=== PATIENT | female | born 1990 | race Caucasian/White ===

== ENCOUNTER 2016-12-04 16:27 | Inpatient (IN) | payer BC ==
[2016-12-04] MEDS ORDERED: Misoprostol 25 MCG (1/4 of 100 MCG) Tab ONE (21:17)
[2016-12-04] MEDS ORDERED: Misoprostol 25 MCG (1/4 of 100 MCG) Tab VAG ONE (21:30)
[2016-12-04] MEDS ORDERED: Sodium Chloride 0.9% 10 ML Syringe FLUSH PRN (21:41)
[2016-12-04] MEDS: Lactated Ringers 1,000 ML IV SCH (22:30)
[2016-12-04] MEDS ORDERED: Ondansetron 4 MG/2 ML SDV IVPUSH PRN (22:47)
[2016-12-04] MEDS ORDERED: fentaNYL 100 MCG/2 ML SDV EPIDUR PRN (22:47)
[2016-12-04] MEDS ORDERED: ePHEDrine 50 MG/ML SDV IVPUSH PRN (22:47)
[2016-12-04] MEDS ORDERED: Bupivacaine/fentaNYL/NS 100 ML Bag EPIDUR SCH (23:00)
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
[2016-12-04] MEDS: Ampicillin 2 GM in Sodium Chloride 0.9% 100 ML IV ONE (23:24)
--- NOTE | 2016-12-04 23:48 | PCM.PREANE ---
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 ), Caries Thyro-Mental Finger Breadths: 3 Mouth Opening Finger Breadths: 3 ROM/Head Extension: Full Lungs: Clear to Auscultation, Normal Respiratory Effort Cardiovascular: Regular Rate, Regular Rhythm, No Murmurs - Lab Values: Laboratory Last Values WBC 12.96 K/mm3 (3.98-10.04) H 12/04/16 22:00 RBC 3.90 M/mm3 (3.98-5.22) L 12/04/16 22:00 Hgb 11.5 gm/L (11.2-15.7) 12/04/16 22:00 Hct 34.3 % (34.1-44.9) 12/04/16 22:00 MCV 87.9 fl (79.4-94.8) 12/04/16 22:00 MCH 29.5 pg (25.6-32.2) 12/04/16 22:00 MCHC 33.5 g/dl (32.2-35.5) 12/04/16 22:00 RDW Std Deviation 40.7 fL (36.4-46.3) 12/04/16 22:00 Plt Count 234 K/mm3 (182-369) 12/04/16 22:00 MPV 9.7 fl (9.4-12.3) 12/04/16 22:00 Neut % (Auto) 72.5 % (34.0-71.1) H 12/04/16 22:00 Lymph % (Auto) 17.7 % (19.3-51.7) L 12/04/16 22:00 Gila % (Auto) 8.6 % (4.7-12.5) 12/04/16 22:00 Eos % (Auto) 0.6 (0.7-5.8) L 12/04/16 22:00 Baso % (Auto) 0.1 % (0.1-1.2) 12/04/16 22:00 Neut # (Auto) 9.40 K/mm3 (1.56-6.13) H 12/04/16 22:00 Lymph # (Auto) 2.29 K/mm3 (1.18-3.74) 12/04/16 22:00 Gila # (Auto) 1.11 K/mm3 (0.24-0.36) H 12/04/16 22:00 Eos # (Auto) 0.08 K/mm3 (0.04-0.36) 12/04/16 22:00 Baso # (Auto) 0.01 K/mm3 (0.01-0.08) 12/04/16 22:00 Free T4 0.85 ng/dL (0.76-1.46) 12/04/16 22:00 TSH 3rd Generation 4.385 uIU/mL (0.358-3.74) H 12/04/16 22:00 Blood Type A POSITIVE 12/04/16 22:00 Gel Antibody Screen Negative 12/04/16 22:00 Above labs reviewed and noted. - Allergies Allergies/Adverse Reactions: Allergies Allergy/AdvReac Type Severity Reaction Status Date / Time No Known Allergies Allergy Verified 10/29/14 19:13 - Anesthesia Plan Pre-Op Medication Ordered: None - Acknowledgements Anesthesia Type Planned: Epidural Pt an Appropriate Candidate for the Planned Anesthesia: Yes Alternatives and Risks of Anesthesia Discussed w Pt/Guardian: Yes Pt/Guardian Understands and Agrees with Anesthesia Plan: Yes PreAnesthesia Questionnaire HEENT History: Reports: Impaired Vision Psychiatric History: Reports: Anxiety, PTSD Endocrine/Metabolic History: Reports: Diabetes, Type I, Other (See Below) Other Endocrine/Metabolic History: HAshimotos - Past Surgical History HEENT Surgical History: Reports: Naso-Sinus Surgery, Oral Surgery, Tonsillectomy GI Surgical History: Reports: Appendectomy, Cholecystectomy - SUBSTANCE USE Smoking Status *Q: Never Smoker Second Hand Smoke Exposure: No Recreational Drug Use History: No - HOME MEDS Home Medications: Home Meds Citalopram [Celexa] 20 mg PO DAILY 04/03/16 [History] Insulin Aspart [Novolog Flexpen] 25 units SUBCUT TID 04/03/16 [History] Insulin Glarg,Human.Rec.Analog [Lantus Solostar] 19 unit SUBCUT ASDIRECTED 04/03 [History] Cetirizine [ZyrTEC] 10 mg PO DAILY 12/04/16 [History] Docusate Sodium [Colace] 300 mg PO BID 12/04/16 [History] [id number]/FA/Omega3/Dha/Fish Oil [ Gummies] 1 each PO 12/04/16 [History] buPROPion [Wellbutrin SR] 150 mg PO DAILY 12/04/16 [History] - CURRENT (IN HOUSE) MEDS Current Meds: Current Medications Bupropion HCl (Wellbutrin Sr) 150 mg PO ONETIME ONE Stop: 12/04/16 21:48 Ephedrine Sulfate (Ephedrine Sulfate) 5 mg IVPUSH ASDIRECTED PRN PRN Reason: Hypotension Fentanyl (Sublimaze) 100 mcg EPIDUR Q3H PRN PRN Reason: Pain Fentanyl/Bupivacaine HCl (Fentanyl/Bupivacaine/Ns 2 Mcg-0.125% 100 Ml) 100 ml EPIDUR ASDIRECTED BIRDIE Insulin Human Regular 100 unit (/ Sodium Chloride) 100 mls @ 0.5 mls/hr IV TITRATE BIRDIE; 0.5 UNIT/HR PRN Reason: Protocol Last Admin: 12/04/16 23:08 Dose: 0.5 unit/hr, 0.5 mls/hr Lactated Ringer's (Ringers, Lactated) 1,000 mls @ 125 mls/hr IV ASDIRECTED BIRDIE Last Admin: 12/04/16 22:30 Dose: 125 mls/hr Oxytocin/Lactated Ringer's (Pitocin In Lr 10 Units/1,000 Ml) 10 unit in 1,000 mls @ 12 mls/hr IV TITRATE BIRDIE; 2 MUNITS/MIN PRN Reason: Protocol Ampicillin Sodium 1 gm/ Sodium (Chloride) 100 mls @ 200 mls/hr IV Q4H [facility] Misoprostol (Cytotec) 25 mcg VAG Q3H BIRDIE Stop: 12/05/16 03:31 Ondansetron HCl (Zofran) 4 mg IVPUSH ONETIME PRN PRN Reason: Nausea/Vomiting Sodium Chloride (Saline Flush) 10 ml FLUSH ASDIRECTED PRN PRN Reason: Keep Vein Open Discontinued Medications Ampicillin Sodium 2 gm/ Sodium (Chloride) 100 mls @ 200 mls/hr IV ONETIME ONE Stop: 12/04/16 23:14 Last Admin: 12/04/16 23:24 Dose: 200 mls/hr Misoprostol (Cytotec) Confirm Administered Dose 25 mcg .ROUTE .STK-MED ONE Stop: 12/04/16 21:18 Last Admin: 12/04/16 23:03 Dose: 25 mcg Misoprostol (Cytotec) 25 mcg VAG ONETIME ONE Stop: 12/04/16 21:31
[2016-12-04] MEDS ORDERED: Nalbuphine 20 MG/1 ML Amp IVPUSH PRN (23:55)
[2016-12-05] MEDS ORDERED: Oxytocin 10 Units/1 ML SDV IV ONE ×2 (00:30→08:00)
[2016-12-05] MEDS: Misoprostol 25 MCG (1/4 of 100 MCG) Tab VAG SCH ×2 (00:35→03:38)
[2016-12-05] MEDS: Ampicillin 1 GM in Sodium Chloride 0.9% 100 ML IV SCH ×6 (03:10→23:00)
[2016-12-05] MEDS ORDERED: Oxytocin/Lactated Ringers 10 UNIT/1,000 ML BAG IV SCH ×2 (06:30)
[2016-12-05] MEDS: Lactated Ringers 1,000 ML IV SCH (07:03)
--- NOTE | 2016-12-05 07:31 | PCM.SN ---
- Free Text/Narrative Note: Cervix 1-2 cm, 50%, soft, posterior vertex-2. Had cytotec 25 mcg x3 now on Pitocin.
[2016-12-05] MEDS ORDERED: Oxytocin/Lactated Ringers 10 UNIT/1,000 ML BAG IV ONE (08:00)
[2016-12-05] MEDS ORDERED: Insulin Detemir 100 Units/ML 3 ML Pen SUBCUT SCH (09:00)
[2016-12-05] MEDS ORDERED: buPROPion 150 MG Tab.SR PO SCH ×2 (09:00→21:00)
[2016-12-05] MEDS: Ampicillin 2 GM in Sodium Chloride 0.9% 100 ML IV ONE (09:57)
--- NOTE | 2016-12-05 10:39 | PCM.SN ---
- Free Text/Narrative Note: Cervix 1-2, 60%, soft, posterior, vertex -1, Cat I FHR with a few variable decelerations.
[2016-12-05] MEDS: INSULIN ASPART 100 UNIT/ML SUBCUT SCH ×3 (12:03→21:11)
--- NOTE | 2016-12-05 13:28 | PCM.SN ---
- Free Text/Narrative Note: Cervix 1-2,70, soft, posterior, vertex-2. Cat I FHR Insulin sliding scale working well with hourly glucoses. Ate lunch and took Novolog 9 units. Will recheck at 1700.
[2016-12-05] MEDS ORDERED: Lactated Ringers 1,000 ML IV SCH (14:00)
[2016-12-05] MEDS ORDERED: Gentamicin Pediatric 10 MG/ML 2 ML SDV ONE (16:06)
[2016-12-05] MEDS ORDERED: Insuln Aspart Prot/Insulin Aspart 100 Units/ML 3 ML FlexPen SUBCUT ONE (20:30)
[2016-12-05] MEDS ORDERED: [UNRECOGNIZED DRUG - OTHER] SUBCUT SCH (20:30)
--- NOTE | 2016-12-05 23:51 | PCM.SN ---
- Free Text/Narrative Note: Amniotomy performed clear fluid at 2343 hours. Cervix 1-2, 80%, soft, posterior , vertex 0 station. IUPC placed. Attempted to place FHR electrode x2 but not able to place at this time.
[2016-12-06] MEDS: Dextrose 5% in Water 1,000 ML IV SCH ×4 (01:02→22:08)
[2016-12-06] MEDS: Ampicillin 1 GM in Sodium Chloride 0.9% 100 ML IV SCH ×4 (03:03→15:10)
--- NOTE | 2016-12-06 04:20 | PCM.DEL ---
L & D Note - General Info Date of Service: 12/06/16 Mother's Due Date: 12/11/16 - Delivery Note Labor: Augmented by ARM, Augmented by Oxytocin Cervical Ripening Method: Misoprostil Delivery Outcome: Livebirth Infant Delivery Method: Emergent (Low segment transverse see operative report.) Infant Delivery Mode: Vacuum Extraction (Active extraction at time of was required 2 applications in the green for less than 30 seconds each.) Presentation: Right Occiput Posterior (ROP) (Rotated to IAN and delivered with vacuum at the time of .) Nuchal Cord: Present (Times one tight) Anesthesia Type: Epidural Episiotomy Type: None Laceration: None Placenta: Intact, Manual Removal Cord: 3 Vessels (At time of . See operative report) Estimated Blood Loss: 750 Resuscitation Needed: No : Suctioned, Bulb Syringe, Stimulated, Warmed, Hensel Used, Warmer Used Provider: Yared New Score 1 min: 7 Score 5 min: 9 Delivery Comments (Free Text/Narrative):: Operative report dictated see operative report for delivery information it was a emergent section not a vaginal delivery. - Patient Data Vitals - Most Recent: Last Vital Signs Temp 98.8 F 12/04/16 23:59 Pulse 117 H 12/04/16 23:59 Resp 18 12/04/16 23:59 BP 137/81 12/04/16 23:59 Pulse Ox 98 12/04/16 23:59 Weight - Most Recent: 229 lb I&O - Last 24 Hours: Intake & Output 12/05/16 12/05/16 12/06/16 14:59 22:59 06:59 Intake Total 200 820 765 Output Total 425 1025 Balance 200 395 -260 Lab Results Last 24 Hours: Laboratory Results - last 24 hr 12/06/16 Range/Units 04:08 POC Glucose 89 (70-105) mg/dL Med Orders - Current: Current Medications Ephedrine Sulfate (Ephedrine Sulfate) 5 mg IVPUSH ASDIRECTED PRN PRN Reason: Hypotension Fentanyl (Sublimaze) 100 mcg EPIDUR Q3H PRN PRN Reason: Pain Fentanyl/Bupivacaine HCl (Fentanyl/Bupivacaine/Ns 2 Mcg-0.125% 100 Ml) 100 ml EPIDUR ASDIRECTED BIRDIE Insulin Human Regular 100 unit (/ Sodium Chloride) 100 mls @ 0.5 mls/hr IV TITRATE BIRDIE; 0.5 UNIT/HR PRN Reason: Protocol Last Titration: 12/06/16 01:59 Dose: 0.5 unit/hr, 0.5 mls/hr Lactated Ringer's (Ringers, Lactated) 1,000 mls @ 125 mls/hr IV ASDIRECTED [facility] Last Infusion: 12/06/16 01:00 Dose: Infused Ampicillin Sodium 1 gm/ Sodium (Chloride) 100 mls @ 200 mls/hr IV Q4H [facility] Last Admin: 12/06/16 03:03 Dose: 100 mls/hr Oxytocin 20 unit/ Lactated (Ringer's) 1,002 mls @ 60.12 mls/hr IV TITRATE BIRDIE; 20 MUNITS/MIN PRN Reason: Protocol Last Titration: 12/06/16 03:51 Dose: 25 munits/min, 75.15 mls/hr Dextrose/Water (Dextrose 5% In Water) 1,000 mls @ 100 mls/hr IV ASDIRECTED [facility] Last Admin: 12/06/16 01:02 Dose: 100 mls/hr Insulin Aspart (Novolog) 0 unit SUBCUT QIDACANDBED [facility] Last Admin: 12/05/16 21:11 Dose: Not Given Nalbuphine HCl (Nubain) 10 mg IVPUSH Q2H PRN PRN Reason: Pain (moderate 4-6) Ondansetron HCl (Zofran) 4 mg IVPUSH ONETIME PRN PRN Reason: Nausea/Vomiting Lantus Insulin U-100 (Own Med) 0 each SUBCUT DAILY@2030 [facility] Last Admin: 12/05/16 21:08 Dose: 30 each Bupropion 150 Mg Tab (.Sr) 0 each PO BEDTIME [facility] Last Admin: 12/05/16 21:04 Dose: 150 each Sodium Chloride (Saline Flush) 10 ml FLUSH ASDIRECTED PRN PRN Reason: Keep Vein Open Discontinued Medications Gentamicin Sulfate (Gentamicin) Confirm Administered Dose 20 mg .ROUTE .STK-MED ONE Stop: 12/05/16 16:07 Last Admin: 12/05/16 16:17 Dose: Not Given Oxytocin/Lactated Ringer's (Pitocin In Lr 10 Units/1,000 Ml) 10 unit in 1,000 mls @ 12 mls/hr IV TITRATE BIRDIE; 2 MUNITS/MIN PRN Reason: Protocol Ampicillin Sodium 2 gm/ Sodium (Chloride) 100 mls @ 200 mls/hr IV ONETIME ONE Stop: 12/04/16 23:14 Last Admin: 12/05/16 09:57 Dose: Not Given Oxytocin/Lactated Ringer's (Pitocin In Lr 10 Units/1,000 Ml) 10 unit in 1,000 mls @ 500 mls/hr IV ONETIME ONE Stop: 12/05/16 09:59 Oxytocin/Lactated Ringer's (Pitocin In Lr 10 Units/1,000 Ml) 10 unit in 1,000 mls @ 12 mls/hr IV TITRATE BIRDIE; 2 MUNITS/MIN PRN Reason: Protocol Last Titration: 12/05/16 18:49 Dose: 0 munits/min, 0 mls/hr Lactated Ringer's (Ringers, Lactated) 1,000 mls @ 125 mls/hr IV ASDIRECTED [facility] Last Infusion: 12/05/16 18:57 Dose: 30 mls/hr Insulin Aspart (Novolog Mix 70-30) 30 unit SUBCUT BIDMEALS ONE Stop: 12/05/16 20:31 Insulin Detemir (Levemir) 15 unit SUBCUT BID [facility] Misoprostol (Cytotec) Confirm Administered Dose 25 mcg .ROUTE .STK-MED ONE Stop: 12/04/16 21:18 Last Admin: 12/04/16 23:03 Dose: 25 mcg Misoprostol (Cytotec) 25 mcg VAG ONETIME ONE Stop: 12/04/16 21:31 Last Admin: 12/05/16 07:57 Dose: Not Given Misoprostol (Cytotec) 25 mcg VAG Q3H [facility]IRDIE Stop: 12/05/16 03:31 Last Admin: 12/05/16 03:38 Dose: 25 mcg Oxytocin (Pitocin) 10 unit IV ONETIME ONE Stop: 12/05/16 00:31 Oxytocin (Pitocin) 10 unit IV ONETIME ONE Stop: 12/05/16 08:01 Bupropion 150 Mg Tab (.Sr) 0 each PO DAILY [facility] Last Admin: 12/05/16 15:18 Dose: Not Given - Problem List & Annotations (1) 39 weeks gestation of SNOMED Code(s): 54603209 Code(s): Z3A.39 - 39 WEEKS GESTATION OF Status: Acute Current Visit: Yes (2) complicated by pre-existing type 1 diabetes in third trimester SNOMED Code(s): 341220253, 61118742, 652738503 Code(s): O24.013 - PRE-EXISTING TYPE 1 DIABETES, IN , THIRD TRIMESTER Status: Acute Current Visit: Yes (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 SNOMED Code(s): 0458797761019 Code(s): Z22.330 - CARRIER OF GROUP B STREPTOCOCCUS Status: Acute Current Visit: Yes (4) Angel's thyroiditis SNOMED Code(s): 37914428 Code(s): E06.3 - AUTOIMMUNE THYROIDITIS Status: Acute Current Visit: Yes - Problem List Review Problem List Initiated/Reviewed/Updated: No - My Orders Last 24 Hours: My Active Orders 12/05/16 11:30 Insulin Aspart [NovoLOG] 0 unit SUBCUT QIDACANDBED 12/05/16 14:01 Communication Order [RC] ASDIRECTED 12/05/16 17:25 Communication Order [RC] ASDIRECTED 12/05/16 17:30 Oxytocin [Pitocin] 20 unit Lactated Ringers [Ringers, Lactated] 1,000 ml IV TITRATE 12/05/16 20:30 Patient's Own Medication [Ptom] 0 each SUBCUT DAILY@202912/05/16 21:00 Patient's Own Medication [Ptom] 0 each PO BEDTIME 12/06/16 00:45 Dextrose 5% in Water 1,000 ml IV ASDIRECTED - Plan Plan:: Assessment: 1- 39 weeks 0/7 days intrauterine . 2- Cervix: 1 cm, 30% effaced, posterior, soft and vertex -3. 3- Type I diabetes mellitus. 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 6- Thoracic outlet syndrome. Plan: 1- Delivery. 2- Continue Lantus. 3- Continue Wellbutrin. 4- IV insulin drip to assist in controlling glucose. 5- Ampicillin for GBS. 6- CBC. Type and screen. 7- TSH and free T4. 8- Rupture membranes, if able, in the am to evaluate amniotic fluids. 9- Lactated ringers IV 125 mL/hour. 10- Cytotec administration.
--- NOTE | 2016-12-06 04:48 | PCM.SN ---
- Free Text/Narrative Note: 1-2, 90%, soft, posterior, vertex-1 Cat I.
[2016-12-06] MEDS ORDERED: Bupivacaine 0.25% 10 ML SDV ONE (05:00)
[2016-12-06] MEDS: INSULIN ASPART 100 UNIT/ML SUBCUT SCH ×3 (08:17→17:28)
[2016-12-06] MEDS ORDERED: Oxytocin 10 Units/1 ML SDV ONE ×3 (09:07→17:11)
[2016-12-06] MEDS ORDERED: Oxytocin/Lactated Ringers 10 UNIT/1,000 ML BAG IV ONE (09:08)
--- NOTE | 2016-12-06 10:20 | PCM.SN ---
- Free Text/Narrative Note: Cervix 3-4 cm, 100%, soft, midposition, vertex 0 station Cat I FHR.
--- NOTE | 2016-12-06 11:13 | PCM.SN ---
- Free Text/Narrative Note: cervix 3-4 cm dilated 100% effaced soft mid position head vertex at 0 to +1 station, category 1 heart tones.
[2016-12-06] MEDS: Lactated Ringers 1,000 ML IV SCH (13:21)
[2016-12-06] MEDS ORDERED: Citric Acid/Sodium Citrate Solution 30 ML Cup PO ONE (15:36)
[2016-12-06] MEDS ORDERED: Metoclopramide 10 MG/2 ML SDV IVPUSH ONE (15:36)
[2016-12-06] MEDS ORDERED: ceFAZolin 2 GM in Premix Bag 1 BAG IV ONE (15:36)
[2016-12-06] MEDS ORDERED: Sodium Chloride 0.9% 10 ML Syringe FLUSH PRN (15:36)
[2016-12-06] MEDS ORDERED: Bupivacaine 0.5% 30 ML SDV ONE (15:37)
--- NOTE | 2016-12-06 15:44 | PCM.SN ---
- Free Text/Narrative Note: Patient had several decelerations, turned off Pitocin examined patient and cervix minimal if any change still 4-5 at most. Due to decelerations, inadequate progress, will proceed with section.
[2016-12-06] MEDS ORDERED: Lactated Ringers 1,000 ML IV SCH (15:45)
[2016-12-06] MEDS ORDERED: Morphine PF 10 MG/10 ML SDV ONE (16:00)
[2016-12-06] MEDS ORDERED: ceFAZolin 1 GM Vial ONE (16:00)
[2016-12-06] MEDS ORDERED: Lidocaine 2% with EPINEPHrine 1:200,000 20 ML SDV ONE (16:03)
[2016-12-06] MEDS ORDERED: Ketorolac 30 MG/ML SDV ONE (16:46)
[2016-12-06] MEDS ORDERED: Lactated Ringers 1,000 ML ONE ×2 (17:10)
[2016-12-06] MEDS ORDERED: fentaNYL 250 MCG/5 ML SDV IVPUSH PRN (17:13)
[2016-12-06] MEDS ORDERED: diphenhydrAMINE 50 MG/ML SDV IVPUSH PRN (17:13)
--- NOTE | 2016-12-06 17:15 | PCM.POSTAN ---
POST ANESTHESIA ASSESSMENT - MENTAL STATUS Mental Status: Alert, Oriented - VITAL SIGNS Pulse Rate: 98 SaO2: 100 Resp Rate: 20 Blood Pressure: 99/63 Temperature: 37.2 C - RESPIRATORY Respiratory Status: Respiratory Rate WNL, Airway Patent, O2 Saturation Stable, Supplemental Oxygen - CARDIOVASCULAR CV Status: Pulse Rate WNL, Blood Pressure Stable - GASTROINTESTINAL GI Status: No Symptoms - PAIN Pain Score: 0 - POST OP HYDRATION Hydration Status: Adequate & Stable - OBSERVATIONS Free Text/Narrative:: no anesthesia complications noted
--- NOTE | 2016-12-06 17:20 | PCM.OPNOTE ---
- General Post-Op/Procedure Note Date of Surgery/Procedure: 12/06/16 Operative Procedure(s): Low segment transverse primary with left inferior extension approximately 2.5-3 cm towards the cervix. (Suggested patient may want to consider repeat section) Pre Op Diagnosis: 39 weeks gestation, failure to progress, nonreassuring heart rate pattern Post-Op Diagnosis: Same plus nuchal cord 1 tight and occiput posterior presentation Anesthesia Technique: Epidural Primary Surgeon: Yared New Secondary Surgeon: Suman Martin Anesthesia Provider: Fahad Michaud Assistant To The Dean: Paco Lombardo ([id number]) Assistant To The Dean: Jinny James Fluid Replacement, Intraop: 2,000 Output, Urine Amount: 325 EBL in mLs: 750 Drain/Tube Comments:: Hanna catheter to gravity drainage close system Complications: None Condition: Good Free Text/Narrative:: Intake & Output 12/06/16 12/06/16 12/06/16 06:59 14:59 22:59 Intake Total 765 3200 500 Output Total 1825 500 Balance -1060 2700 500 Patient was transported to the operating room and placed under epidural anesthesia in the supine position and prepared and draped in a sterile fashion vaginal and abdominal prep. Hanna catheter had been placed to gravity drainage. SCDs in place and functioning prior surgery. Patient received 2 g of Ancef intravenously prior to surgery. Timeout performed confirming name date of and procedure as section. Adequate level of anesthesia was confirmed. The was brought to the operating room. Injecting 20 mL of 0.5% Marcaine without epinephrine in the planned incision area of the incision made and carried sharp section to into the anterior fascia. The anterior fascia was entered transversely and peritoneal cavity then entered bladder flap created pushed caudad low segment transverse section was performed the was persistent occiput posterior the head was elevated and carefully rotated nuchal cord 1 tight was reduced and vacuum was applied 2 in the green 2. The was delivered male liveborn 1627 hrs Thursday12/06/2016. Dr. Reardon crabbing machine operator in attendance and cared for the . Cord blood collected from normal three-vessel cord placenta removed manually endometrial cavity inspected and remnants of membranes removed sponge needle pack asthma sharp count correct times one the uterine incision closed in 2 layers with 0 Monocryl running locking suture for the first layer and a second layer running locking suture including 2 layers with the inferior left side extension towards the cervix. The incision appeared normal no bleeding both tubes and ovaries were normal clot screen from the gutters and cul-de-sac uterus replaced into the abdominal cavity reinspection of the uterine incision showed no bleeding. Sponge needle pack asthma sharp count correct 2 and the abdominal cavity was closed with #1 PDS for the anterior fascia 3 interrupted sutures of 0 Monocryl placed to close the subcutaneous tissue. The skin was closed subcuticular 3-0 Monocryl. Dermabond Preneo applied. Patient was transported postanesthesia care unit in satisfactory condition no blood transfusions required not anticipated. Patient received Toradol 30 mg IV postop. Clots were cleaned from the vagina at the end of the procedure.
[2016-12-06] MEDS ORDERED: [UNRECOGNIZED DRUG - OTHER] SUBCUT SCH (20:30)
[2016-12-06] MEDS ORDERED: DOCUSATE SODIUM PO SCH (21:00)
[2016-12-06] MEDS: buPROPion 150 MG Tab.SR PO SCH (21:11)
[2016-12-06] MEDS: Ketorolac 30 MG/ML SDV IVPUSH SCH (23:09)
[2016-12-07] MEDS: Ketorolac 30 MG/ML SDV IVPUSH SCH ×2 (05:08→11:29)
[2016-12-07] MEDS: INSULIN ASPART 100 UNIT/ML SUBCUT SCH ×3 (08:04→17:17)
[2016-12-07] MEDS ORDERED: BUPROPION 150 MG PO SCH (09:00)
--- NOTE | 2016-12-07 10:19 | PCM.PNPP ---
- General Info Date of Service: 12/07/16 Admission Dx/Problem (Free Text): Patient Status Order with Admit Dx/Problem 12/04/16 23:57 Patient Status [ADT] Routine Admission Diagnosis/Problem Admission Diagnosis/Problem Functional Status: Reports: Pain Controlled - Review of Systems General: Reports: No Symptoms HEENT: Reports: No Symptoms Pulmonary: Reports: No Symptoms Cardiovascular: Reports: No Symptoms Gastrointestinal: Reports: No Symptoms Genitourinary: Reports: No Symptoms Musculoskeletal: Reports: No Symptoms Skin: Reports: No Symptoms Neurological: Reports: No Symptoms Psychiatric: Reports: No Symptoms - General Info Date of Service: 12/07/16 - Patient Data Vital Signs - Most Recent: Last Vital Signs Temp 97.9 F 12/07/16 09:03 Pulse 95 12/07/16 09:03 Resp 14 12/07/16 09:03 BP 108/61 12/07/16 09:03 Pulse Ox 100 12/07/16 09:03 Weight - Most Recent: 229 lb I&O - Last 24 Hours: Intake & Output 12/06/16 12/07/16 12/07/16 22:59 06:59 14:59 Intake Total 2900 1700 Output Total 875 1450 750 Balance 2025 250 -750 Lab Results - Last 24 Hours: Laboratory Results - last 24 hr 12/06/16 12/06/16 12/06/16 Range/Units 11:07 12:09 13:05 WBC (3.98-10.04) K/mm3 RBC (3.98-5.22) M/mm3 Hgb (11.2-15.7) gm/L Hct (34.1-44.9) % MCV (79.4-94.8) fl MCH (25.6-32.2) pg MCHC (32.2-35.5) g/dl RDW Std Deviation (36.4-46.3) fL Plt Count (182-369) K/mm3 MPV (9.4-12.3) fl Neut % (Auto) (34.0-71.1) % Lymph % (Auto) (19.3-51.7) % Reagan % (Auto) (4.7-12.5) % Eos % (Auto) (0.7-5.8) Baso % (Auto) (0.1-1.2) % Neut # (Auto) (1.56-6.13) K/mm3 Lymph # (Auto) (1.18-3.74) K/mm3 Reagan # (Auto) (0.24-0.36) K/mm3 Eos # (Auto) (0.04-0.36) K/mm3 Baso # (Auto) (0.01-0.08) K/mm3 POC Glucose 106 H 125 H 103 (70-105) mg/dL 12/06/16 12/06/16 12/06/16 Range/Units 14:04 14:58 16:00 WBC (3.98-10.04) K/mm3 RBC (3.98-5.22) M/mm3 Hgb (11.2-15.7) gm/L Hct (34.1-44.9) % MCV (79.4-94.8) fl MCH (25.6-32.2) pg MCHC (32.2-35.5) g/dl RDW Std Deviation (36.4-46.3) fL Plt Count (182-369) K/mm3 MPV (9.4-12.3) fl Neut % (Auto) (34.0-71.1) % Lymph % (Auto) (19.3-51.7) % Reagan % (Auto) (4.7-12.5) % Eos % (Auto) (0.7-5.8) Baso % (Auto) (0.1-1.2) % Neut # (Auto) (1.56-6.13) K/mm3 Lymph # (Auto) (1.18-3.74) K/mm3 Reagan # (Auto) (0.24-0.36) K/mm3 Eos # (Auto) (0.04-0.36) K/mm3 Baso # (Auto) (0.01-0.08) K/mm3 POC Glucose 116 H 112 H 107 H (70-105) mg/dL 12/06/16 12/06/16 12/06/16 Range/Units 17:12 18:59 20:02 WBC (3.98-10.04) K/mm3 RBC (3.98-5.22) M/mm3 Hgb (11.2-15.7) gm/L Hct (34.1-44.9) % MCV (79.4-94.8) fl MCH (25.6-32.2) pg MCHC (32.2-35.5) g/dl RDW Std Deviation (36.4-46.3) fL Plt Count (182-369) K/mm3 MPV (9.4-12.3) fl Neut % (Auto) (34.0-71.1) % Lymph % (Auto) (19.3-51.7) % Reagan % (Auto) (4.7-12.5) % Eos % (Auto) (0.7-5.8) Baso % (Auto) (0.1-1.2) % Neut # (Auto) (1.56-6.13) K/mm3 Lymph # (Auto) (1.18-3.74) K/mm3 Reagan # (Auto) (0.24-0.36) K/mm3 Eos # (Auto) (0.04-0.36) K/mm3 Baso # (Auto) (0.01-0.08) K/mm3 POC Glucose 115 H 166 H 156 H (70-105) mg/dL 12/06/16 12/06/16 12/06/16 Range/Units 21:14 22:04 23:02 WBC (3.98-10.04) K/mm3 RBC (3.98-5.22) M/mm3 Hgb (11.2-15.7) gm/L Hct (34.1-44.9) % MCV (79.4-94.8) fl MCH (25.6-32.2) pg MCHC (32.2-35.5) g/dl RDW Std Deviation (36.4-46.3) fL Plt Count (182-369) K/mm3 MPV (9.4-12.3) fl Neut % (Auto) (34.0-71.1) % Lymph % (Auto) (19.3-51.7) % Reagan % (Auto) (4.7-12.5) % Eos % (Auto) (0.7-5.8) Baso % (Auto) (0.1-1.2) % Neut # (Auto) (1.56-6.13) K/mm3 Lymph # (Auto) (1.18-3.74) K/mm3 Reagan # (Auto) (0.24-0.36) K/mm3 Eos # (Auto) (0.04-0.36) K/mm3 Baso # (Auto) (0.01-0.08) K/mm3 POC Glucose 175 H 154 H 138 H (70-105) mg/dL 12/07/16 12/07/16 12/07/16 Range/Units 00:17 00:59 01:56 WBC (3.98-10.04) K/mm3 RBC (3.98-5.22) M/mm3 Hgb (11.2-15.7) gm/L Hct (34.1-44.9) % MCV (79.4-94.8) fl MCH (25.6-32.2) pg MCHC (32.2-35.5) g/dl RDW Std Deviation (36.4-46.3) fL Plt Count (182-369) K/mm3 MPV (9.4-12.3) fl Neut % (Auto) (34.0-71.1) % Lymph % (Auto) (19.3-51.7) % Reagan % (Auto) (4.7-12.5) % Eos % (Auto) (0.7-5.8) Baso % (Auto) (0.1-1.2) % Neut # (Auto) (1.56-6.13) K/mm3 Lymph # (Auto) (1.18-3.74) K/mm3 Reagan # (Auto) (0.24-0.36) K/mm3 Eos # (Auto) (0.04-0.36) K/mm3 Baso # (Auto) (0.01-0.08) K/mm3 POC Glucose 119 H 113 H 105 (70-105) mg/dL 12/07/16 12/07/16 12/07/16 Range/Units 02:59 04:06 05:03 WBC (3.98-10.04) K/mm3 RBC (3.98-5.22) M/mm3 Hgb (11.2-15.7) gm/L Hct (34.1-44.9) % MCV (79.4-94.8) fl MCH (25.6-32.2) pg MCHC (32.2-35.5) g/dl RDW Std Deviation (36.4-46.3) fL Plt Count (182-369) K/mm3 MPV (9.4-12.3) fl Neut % (Auto) (34.0-71.1) % Lymph % (Auto) (19.3-51.7) % Reagan % (Auto) (4.7-12.5) % Eos % (Auto) (0.7-5.8) Baso % (Auto) (0.1-1.2) % Neut # (Auto) (1.56-6.13) K/mm3 Lymph # (Auto) (1.18-3.74) K/mm3 Reagan # (Auto) (0.24-0.36) K/mm3 Eos # (Auto) (0.04-0.36) K/mm3 Baso # (Auto) (0.01-0.08) K/mm3 POC Glucose 86 92 83 (70-105) mg/dL 12/07/16 12/07/16 12/07/16 Range/Units 06:08 07:05 07:57 WBC (3.98-10.04) K/mm3 RBC (3.98-5.22) M/mm3 Hgb (11.2-15.7) gm/L Hct (34.1-44.9) % MCV (79.4-94.8) fl MCH (25.6-32.2) pg MCHC (32.2-35.5) g/dl RDW Std Deviation (36.4-46.3) fL Plt Count (182-369) K/mm3 MPV (9.4-12.3) fl Neut % (Auto) (34.0-71.1) % Lymph % (Auto) (19.3-51.7) % Reagan % (Auto) (4.7-12.5) % Eos % (Auto) (0.7-5.8) Baso % (Auto) (0.1-1.2) % Neut # (Auto) (1.56-6.13) K/mm3 Lymph # (Auto) (1.18-3.74) K/mm3 Reagan # (Auto) (0.24-0.36) K/mm3 Eos # (Auto) (0.04-0.36) K/mm3 Baso # (Auto) (0.01-0.08) K/mm3 POC Glucose 74 76 128 H (70-105) mg/dL 12/07/16 12/07/16 Range/Units 09:17 10:00 WBC 10.55 H (3.98-10.04) K/mm3 RBC 3.06 L (3.98-5.22) M/mm3 Hgb 9.0 L (11.2-15.7) gm/L Hct 27.2 L (34.1-44.9) % MCV 88.9 (79.4-94.8) fl MCH 29.4 (25.6-32.2) pg MCHC 33.1 (32.2-35.5) g/dl RDW Std Deviation 40.6 (36.4-46.3) fL Plt Count 203 (182-369) K/mm3 MPV 9.0 L (9.4-12.3) fl Neut % (Auto) 75.4 H (34.0-71.1) % Lymph % (Auto) 15.3 L (19.3-51.7) % Reagan % (Auto) 8.3 (4.7-12.5) % Eos % (Auto) 0.5 L (0.7-5.8) Baso % (Auto) 0.1 (0.1-1.2) % Neut # (Auto) 7.96 H (1.56-6.13) K/mm3 Lymph # (Auto) 1.61 (1.18-3.74) K/mm3 Reagan # (Auto) 0.88 H (0.24-0.36) K/mm3 Eos # (Auto) 0.05 (0.04-0.36) K/mm3 Baso # (Auto) 0.01 (0.01-0.08) K/mm3 POC Glucose 127 H (70-105) mg/dL Med Orders - Current: Current Medications Docusate Sodium (Colace) 100 mg PO TID PRN PRN Reason: Constipation Insulin Aspart (Novolog) 0 unit SUBCUT TIDMEALS BIRDIE Last Admin: 12/07/16 08:04 Dose: 5 units Ketorolac Tromethamine (Toradol) 30 mg IVPUSH Q6H BIRDIE Stop: 12/07/16 11:01 Last Admin: 12/07/16 05:08 Dose: 30 mg Cetirizine 10 MgPt (Own Med) 10 mg PO DAILY [facility] Lantus Insulin U-100 (Own Med) 0 each SUBCUT DAILY@2030 [facility] Last Admin: 12/06/16 21:11 Dose: 15 each Bupropion 150 Mg Tab (.Sr) 0 each PO BEDTIME [facility] Last Admin: 12/06/16 21:11 Dose: 150 each Discontinued Medications Bupivacaine HCl (Marcaine 0.5%) Confirm Administered Dose 30 ml .ROUTE .STK-MED ONE Stop: 12/06/16 15:38 Last Admin: 12/06/16 16:21 Dose: 20 ml Cefazolin Sodium (Ancef) Confirm Administered Dose 2 gm .ROUTE .STK-MED ONE Stop: 12/06/16 16:01 Citric Acid/Sodium Citrate (Bicitra Solution) 30 ml PO ONETIME ONE Stop: 12/06/16 15:37 Last Admin: 12/06/16 16:04 Dose: 30 ml Diphenhydramine HCl (Benadryl) 25 mg IVPUSH Q6H PRN PRN Reason: Itching Ephedrine Sulfate (Ephedrine Sulfate) 5 mg IVPUSH ASDIRECTED PRN PRN Reason: Hypotension Fentanyl (Sublimaze) 100 mcg EPIDUR Q3H PRN PRN Reason: Pain Last Admin: 12/06/16 12:13 Dose: 100 mcg Fentanyl (Sublimaze) 50 mcg IVPUSH Q5M PRN PRN Reason: PAIN Fentanyl/Bupivacaine HCl (Fentanyl/Bupivacaine/Ns 2 Mcg-0.125% 100 Ml) 100 ml EPIDUR ASDIRECTED BIRDIE Last Admin: 12/06/16 12:13 Dose: 100 ml Gentamicin Sulfate (Gentamicin) Confirm Administered Dose 20 mg .ROUTE .STK-MED ONE Stop: 12/05/16 16:07 Last Admin: 12/05/16 16:17 Dose: Not Given Insulin Human Regular 100 unit (/ Sodium Chloride) 100 mls @ 0.5 mls/hr IV TITRATE BIRDIE; 0.5 UNIT/HR PRN Reason: Protocol Last Titration: 12/06/16 07:03 Dose: 1 unit/hr, 1 mls/hr Lactated Ringer's (Ringers, Lactated) 1,000 mls @ 125 mls/hr IV ASDIRECTED BIRDIE Last Infusion: 12/06/16 15:06 Dose: 30 mls/hr Oxytocin/Lactated Ringer's (Pitocin In Lr 10 Units/1,000 Ml) 10 unit in 1,000 mls @ 12 mls/hr IV TITRATE BIRDIE; 2 MUNITS/MIN PRN Reason: Protocol Ampicillin Sodium 2 gm/ Sodium (Chloride) 100 mls @ 200 mls/hr IV ONETIME ONE Stop: 12/04/16 23:14 Last Admin: 12/05/16 09:57 Dose: Not Given Ampicillin Sodium 1 gm/ Sodium (Chloride) 100 mls @ 200 mls/hr IV Q4H BIRDIE Last Admin: 12/06/16 15:10 Dose: 100 mls/hr Oxytocin/Lactated Ringer's (Pitocin In Lr 10 Units/1,000 Ml) 10 unit in 1,000 mls @ 500 mls/hr IV ONETIME ONE Stop: 12/05/16 09:59 Oxytocin/Lactated Ringer's (Pitocin In Lr 10 Units/1,000 Ml) 10 unit in 1,000 mls @ 12 mls/hr IV TITRATE BIRDIE; 2 MUNITS/MIN PRN Reason: Protocol Last Titration: 12/05/16 18:49 Dose: 0 munits/min, 0 mls/hr Lactated Ringer's (Ringers, Lactated) 1,000 mls @ 125 mls/hr IV ASDIRECTED BIRDIE Last Infusion: 12/05/16 18:57 Dose: 30 mls/hr Oxytocin 20 unit/ Lactated (Ringer's) 1,002 mls @ 60.12 mls/hr IV TITRATE BIRDIE; 20 MUNITS/MIN PRN Reason: Protocol Last Titration: 12/06/16 15:23 Dose: 0 munits/min, 0 mls/hr Dextrose/Water (Dextrose 5% In Water) 1,000 mls @ 100 mls/hr IV ASDIRECTED BIRDIE Last Admin: 12/06/16 11:08 Dose: 100 mls/hr Oxytocin/Lactated Ringer's (Pitocin In Lr 10 Units/1,000 Ml) Confirm Administered Dose 10 unit in 1,000 mls @ as directed IV .STK-MED ONE Stop: 12/06/16 09:09 Last Admin: 12/06/16 10:30 Dose: Not Given Cefazolin Sodium/Dextrose 2 gm (/ Premix) 50 mls @ 100 mls/hr IV ONETIME ONE Stop: 12/06/16 16:05 Lactated Ringer's (Ringers, Lactated) 1,000 mls @ 125 mls/hr IV ASDIRECTED BIRDIE Lactated Ringer's (Ringers, Lactated) Confirm Administered Dose 1,000 mls @ as directed .ROUTE .STK-MED ONE Stop: 12/06/16 17:11 Lactated Ringer's (Ringers, Lactated) Confirm Administered Dose 1,000 mls @ as directed .ROUTE .STK-MED ONE Stop: 12/06/16 17:11 Dextrose/Water (Dextrose 5% In Water) 1,000 mls @ 100 mls/hr IV ASDIRECTED BIRDIE Last Admin: 12/06/16 22:08 Dose: 100 mls/hr Insulin Human Regular 100 unit (/ Sodium Chloride) 100 mls @ 0.5 mls/hr IV TITRATE BIRDIE; 0.5 UNIT/HR PRN Reason: Protocol Last Titration: 12/07/16 06:08 Dose: 0 unit/hr, 0 mls/hr Insulin Aspart (Novolog Mix 70-30) 30 unit SUBCUT BIDMEALS ONE Stop: 12/05/16 20:31 Insulin Aspart (Novolog) 0 unit SUBCUT QIDACANDBED [facility] Last Admin: 12/06/16 17:28 Dose: Not Given Insulin Detemir (Levemir) 15 unit SUBCUT BID [facility] Ketorolac Tromethamine (Toradol) Confirm Administered Dose 30 mg .ROUTE .STK- MED ONE Stop: 12/06/16 16:47 Lidocaine/Epinephrine (Xylocaine-Mpf 2%-Epi 1:200,000) Confirm Administered Dose 20 ml .ROUTE .STK-MED ONE Stop: 12/06/16 16:04 Metoclopramide HCl (Reglan) 10 mg IVPUSH ONETIME ONE Stop: 12/06/16 15:37 Last Admin: 12/06/16 16:03 Dose: 10 mg Misoprostol (Cytotec) Confirm Administered Dose 25 mcg .ROUTE .STK-MED ONE Stop: 12/04/16 21:18 Last Admin: 12/04/16 23:03 Dose: 25 mcg Misoprostol (Cytotec) 25 mcg VAG ONETIME ONE Stop: 12/04/16 21:31 Last Admin: 12/05/16 07:57 Dose: Not Given Misoprostol (Cytotec) 25 mcg VAG Q3H BIRDIE Stop: 12/05/16 03:31 Last Admin: 12/05/16 03:38 Dose: 25 mcg Morphine Sulfate (Duramorph Pf) Confirm Administered Dose 10 mg .ROUTE .STK-MED ONE Stop: 12/06/16 16:01 Nalbuphine HCl (Nubain) 10 mg IVPUSH Q2H PRN PRN Reason: Pain (moderate 4-6) Non-Formulary Medication (Bupropion) 150 mg PO DAILY [facility] Non-Formulary Medication (Docusate Sodium [Colace]) 300 mg PO BID [facility] Ondansetron HCl (Zofran) 4 mg IVPUSH ONETIME PRN PRN Reason: Nausea/Vomiting Oxytocin (Pitocin) 10 unit IV ONETIME ONE Stop: 12/05/16 00:31 Oxytocin (Pitocin) 10 unit IV ONETIME ONE Stop: 12/05/16 08:01 Oxytocin (Pitocin) Confirm Administered Dose 20 unit .ROUTE .STK-MED ONE Stop: 12/06/16 09:08 Last Admin: 12/06/16 10:03 Dose: Not Given Oxytocin (Pitocin) Confirm Administered Dose 10 unit .ROUTE .STK-MED ONE Stop: 12/06/16 16:04 Oxytocin (Pitocin) Confirm Administered Dose 10 unit .ROUTE .STK-MED ONE Stop: 12/06/16 17:12 Bupropion 150 Mg Tab (.Sr) 0 each PO DAILY [facility] Last Admin: 12/05/16 15:18 Dose: Not Given Lantus Insulin U-100 (Own Med) 0 each SUBCUT DAILY@2030 [facility] Last Admin: 12/05/16 21:08 Dose: 30 each Bupropion 150 Mg Tab (.Sr) 0 each PO BEDTIME [facility] Last Admin: 12/05/16 21:04 Dose: 150 each Sodium Chloride (Saline Flush) 10 ml FLUSH ASDIRECTED PRN PRN Reason: Keep Vein Open Sodium Chloride (Saline Flush) 10 ml FLUSH ASDIRECTED PRN PRN Reason: Keep Vein Open - Interaction Disposition, : in Room with Family Interaction: Holding Feeding: Continues to Breastfeed Support Person: - Recovery Exam Fundal Tone: Firm Fundal Level: At Umbilicus Fundal Placement: Midline Lochia Amount: Scant Lochia Color: Rubra/Red Perineum Description: Intact, Minimal Bruising/Swelling Episiotomy/Laceration: None Bladder Status: Voiding Urinary Elimination: Voided - Exam General: Alert, Oriented HEENT: Pupils Equal Neck: Supple Lungs: Clear to Auscultation, Normal Respiratory Effort Cardiovascular: Regular Rate, Regular Rhythm GI/Abdominal Exam: Normal Bowel Sounds, Soft, Non-Tender, No Organomegaly, No Distention, No Abnormal Bruit, No Mass, Pelvis Stable Extremities: Normal Inspection, Normal Range of Motion, Non-Tender, No Pedal Edema, Normal Capillary Refill Skin: Warm, Dry, Intact Wound/Incisions: Healing Well Neurological: No New Focal Deficit Psy/Mental Status: Alert, Normal Affect, Normal Mood - Problem List & Annotations (1) 39 weeks gestation of SNOMED Code(s): 75642621 Code(s): Z3A.39 - 39 WEEKS GESTATION OF Status: Acute Current Visit: Yes (2) complicated by pre-existing type 1 diabetes in third trimester SNOMED Code(s): 751117509, 00443857, 172720782 Code(s): O24.013 - PRE-EXISTING TYPE 1 DIABETES, IN , THIRD TRIMESTER Status: Acute Current Visit: Yes (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 SNOMED Code(s): 8542583208456 Code(s): Z22.330 - CARRIER OF GROUP B STREPTOCOCCUS Status: Acute Current Visit: Yes (4) Angel's thyroiditis SNOMED Code(s): 27792600 Code(s): E06.3 - AUTOIMMUNE THYROIDITIS Status: Acute Current Visit: Yes - Problem List Review Problem List Initiated/Reviewed/Updated: No - My Orders Last 24 Hours: My Active Orders 12/06/16 15:36 Vital Signs [RC] PFP 12/06/16 17:56 Communication Order [RC] ASDIRECTED 12/06/16 19:48 Docusate Sodium [Colace] 100 mg PO TID PRN 12/06/16 20:30 Patient's Own Medication [Ptom] 0 each SUBCUT DAILY@202912/06/16 21:00 Patient's Own Medication [Ptom] 0 each PO BEDTIME 12/06/16 23:00 Ketorolac [Toradol] 30 mg IVPUSH Q6H 12/07/16 07:00 Insulin Aspart [NovoLOG] 0 unit SUBCUT TIDMEALS 12/07/16 09:00 Cetirizine 10 mg PO DAILY 12/07/16 10:12 Communication Order [RC] ASDIRECTED - Plan Plan:: Assessment: 1- 39 weeks 0/7 days intrauterine . 2- Cervix: 1 cm, 30% effaced, posterior, soft and vertex -3. 3- Type I diabetes mellitus. 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 6- Thoracic outlet syndrome. Plan: 1- Delivery. 2- Continue Lantus. 3- Continue Wellbutrin. 4- IV insulin drip to assist in controlling glucose. 5- Ampicillin for GBS. 6- CBC. Type and screen. 7- TSH and free T4. 8- Rupture membranes, if able, in the am to evaluate amniotic fluids. 9- Lactated ringers IV 125 mL/hour. 10- Cytotec administration.
[2016-12-07] MEDS: CETIRIZINE 10 MG PO SCH (11:33)
[2016-12-07] MEDS: LANTUS SUBCUT SCH ×2 (11:46→21:00)
[2016-12-07] MEDS ORDERED: Acetaminophen/oxyCODONE 325-5 MG Tab PO PRN (18:53)
[2016-12-07] MEDS ORDERED: Acetaminophen 325 MG Tab PO PRN (18:56)
[2016-12-07] MEDS: buPROPion 150 MG Tab.SR PO SCH (20:16)
[2016-12-07] MEDS: DOCUSATE SODIUM 100 MG PO PRN (20:16)
[2016-12-07] MEDS: Ibuprofen 600 MG Tab PO PRN (20:17)
[2016-12-08] MEDS: Ibuprofen 600 MG Tab PO PRN ×4 (03:30→21:24)
--- NOTE | 2016-12-08 08:44 | PCM.SN ---
- Free Text/Narrative Note: Postop day #2 Afebrile chest clear uterus involuting normally and incision healing well but patient has blisters at each end of the Dermabond Preneo, the Dermabond was removed the larger blister on the left side was approximately 1 cm in diameter it ruptured with removal of the Dermabond, the smaller blister on the right side approximately 5 x 5 mm did not rupture. Will apply triple antibiotic ointment 3 times a day and patient informed of her allergy to Dermabond. Incision appears normal no heavy vaginal bleeding no leg cramping Patient has had problems with hypoglycemia during the night around 3-4 AM. Will adjust her Lantus to 10 units a.m. and continue 15 units p.m. at 0 900 and 2100 hrs. respectively. We'll keep patient today to see how she does with her blood sugar she is also having some difficulty breast-feeding due to inverted nipples.
[2016-12-08] MEDS: INSULIN ASPART 100 UNIT/ML SUBCUT SCH ×4 (09:11→17:31)
[2016-12-08] MEDS: Bacitracin/Neomycin/Polymyxin B Oint 15 GM Tube TOP SCH ×4 (09:12→22:20)
[2016-12-08] MEDS: LANTUS SUBCUT SCH ×2 (09:12→21:21)
[2016-12-08] MEDS: CETIRIZINE 10 MG PO SCH (09:13)
[2016-12-08] MEDS: buPROPion 150 MG Tab.SR PO SCH (21:21)
[2016-12-08] MEDS: DOCUSATE SODIUM 100 MG PO PRN (21:22)
[2016-12-09] MEDS: Ibuprofen 600 MG Tab PO PRN ×2 (08:10→14:23)
[2016-12-09] MEDS: INSULIN ASPART 100 UNIT/ML SUBCUT SCH ×2 (08:11→12:31)
[2016-12-09] MEDS: LANTUS SUBCUT SCH (08:13)
[2016-12-09] MEDS: DOCUSATE SODIUM 100 MG PO PRN (08:14)
[2016-12-09] MEDS: CETIRIZINE 10 MG PO SCH (11:09)
[2016-12-09] MEDS: Bacitracin/Neomycin/Polymyxin B Oint 15 GM Tube TOP SCH ×2 (11:09→15:33)
--- NOTE | 2016-12-09 11:30 | PCM.DCSUM1 ---
Discharge Summary - Hospital Course Free Text/Narrative:: [facility] Post-Op/Procedure Note Patient Name: STEVEN ELENA Date of : 88 Patient Status: Inpatient Attending Provider: Yared New Date: 12/06/16 17:09 Initialization Date: 12/06/16 17:09 - General Post-Op/Procedure Note Date of Surgery/Procedure: 12/06/16 Operative Procedure(s): Low segment transverse primary with left inferior extension approximately 2.5-3 cm towards the cervix. (Suggested patient may want to consider repeat section) Pre Op Diagnosis: 39 weeks gestation, failure to progress, nonreassuring heart rate pattern Post-Op Diagnosis: Same plus nuchal cord 1 tight and occiput posterior presentation Anesthesia Technique: Epidural Primary Surgeon: Yared New Secondary Surgeon: Suman Martin Anesthesia Provider: Fahad Michaud Test Clerk: Paco Lombardo (MS4) Test Clerk: Jinny James Fluid Replacement, Intraop: 2,000 Output, Urine Amount: 325 EBL in mLs: 750 Drain/Tube Comments:: Hanna catheter to gravity drainage close system Complications: None Condition: Good Free Text/Narrative:: Intake & Output 12/06/16 12/06/16 12/06/16 06:59 14:59 22:59 Intake Total 765 3200 500 Output Total 1825 500 Balance -1060 2700 500 Patient was transported to the operating room and placed under epidural anesthesia in the supine position and prepared and draped in a sterile fashion vaginal and abdominal prep. Hanna catheter had been placed to gravity drainage. SCDs in place and functioning prior surgery. Patient received 2 g of Ancef intravenously prior to surgery. Timeout performed confirming name date of and procedure as section. Adequate level of anesthesia was confirmed. The was brought to the operating room. Injecting 20 mL of 0.5% Marcaine without epinephrine in the planned incision area of the incision made and carried sharp section to into the anterior fascia. The anterior fascia was entered transversely and peritoneal cavity then entered bladder flap created pushed caudad low segment transverse section was performed the infant was persistent occiput posterior the head was elevated and carefully rotated nuchal cord 1 tight was reduced and vacuum was applied 2 in the green 2. The infant was delivered male liveborn 1627 hrs Thursday12/06/2016. Dr. Reardon package checker in attendance and cared for the . Cord blood collected from normal three-vessel cord placenta removed manually endometrial cavity inspected and remnants of membranes removed sponge needle pack asthma sharp count correct times one the uterine incision closed in 2 layers with 0 Monocryl running locking suture for the first layer and a second layer running locking suture including 2 layers with the inferior left side extension towards the cervix. The incision appeared normal no bleeding both tubes and ovaries were normal clot screen from the gutters and cul-de-sac uterus replaced into the abdominal cavity reinspection of the uterine incision showed no bleeding. Sponge needle pack asthma sharp count correct 2 and the abdominal cavity was closed with #1 PDS for the anterior fascia 3 interrupted sutures of 0 Monocryl placed to close the subcutaneous tissue. The skin was closed subcuticular 3-0 Monocryl. Dermabond Preneo applied. Patient was transported postanesthesia care unit in satisfactory condition no blood transfusions required not anticipated. Patient received Toradol 30 mg IV postop. Clots were cleaned from the vagina at the end of the procedure. HPI Initial Comments: [facility] Post-Op/Procedure Note Patient Name: STEVEN ELENA Date of : 88 Patient Status: Inpatient Attending Provider: Yared New Date: 12/06/16 17:09 Initialization Date: 12/06/16 17:09 - General Post-Op/Procedure Note Date of Surgery/Procedure: 12/06/16 Operative Procedure(s): Low segment transverse primary with left inferior extension approximately 2.5-3 cm towards the cervix. (Suggested patient may want to consider repeat section) Pre Op Diagnosis: 39 weeks gestation, failure to progress, nonreassuring heart rate pattern Post-Op Diagnosis: Same plus nuchal cord 1 tight and occiput posterior presentation Anesthesia Technique: Epidural Primary Surgeon: Yared New Secondary Surgeon: Suman Martin Anesthesia Provider: Fahad Michaud Test Clerk: Paco Lombardo (MS4) Test Clerk: Jinny James Fluid Replacement, Intraop: 2,000 Output, Urine Amount: 325 EBL in mLs: 750 Drain/Tube Comments:: Hanna catheter to gravity drainage close system Complications: None Condition: Good Free Text/Narrative:: Intake & Output 12/06/16 12/06/16 12/06/16 06:59 14:59 22:59 Intake Total 765 3200 500 Output Total 1825 500 Balance -1060 2700 500 Patient was transported to the operating room and placed under epidural anesthesia in the supine position and prepared and draped in a sterile fashion vaginal and abdominal prep. Hanna catheter had been placed to gravity drainage. SCDs in place and functioning prior surgery. Patient received 2 g of Ancef intravenously prior to surgery. Timeout performed confirming name date of and procedure as section. Adequate level of anesthesia was confirmed. The was brought to the operating room. Injecting 20 mL of 0.5% Marcaine without epinephrine in the planned incision area of the incision made and carried sharp section to into the anterior fascia. The anterior fascia was entered transversely and peritoneal cavity then entered bladder flap created pushed caudad low segment transverse section was performed the infant was persistent occiput posterior the head was elevated and carefully rotated nuchal cord 1 tight was reduced and vacuum was applied 2 in the green 2. The was delivered male liveborn 1627 hrs Thursday12/06/2016. Dr. Reardon package checker in attendance and cared for the . Cord blood collected from normal three-vessel cord placenta removed manually endometrial cavity inspected and remnants of membranes removed sponge needle pack asthma sharp count correct times one the uterine incision closed in 2 layers with 0 Monocryl running locking suture for the first layer and a second layer running locking suture including 2 layers with the inferior left side extension towards the cervix. The incision appeared normal no bleeding both tubes and ovaries were normal clot screen from the gutters and cul-de-sac uterus replaced into the abdominal cavity reinspection of the uterine incision showed no bleeding. Sponge needle pack asthma sharp count correct 2 and the abdominal cavity was closed with #1 PDS for the anterior fascia 3 interrupted sutures of 0 Monocryl placed to close the subcutaneous tissue. The skin was closed subcuticular 3-0 Monocryl. Dermabond Preneo applied. Patient was transported postanesthesia care unit in satisfactory condition no blood transfusions required not anticipated. Patient received Toradol 30 mg IV postop. Clots were cleaned from the vagina at the end of the procedure. Brief History: [facility] . Post-Op/Procedure Note. Patient Name: STEVEN ELENA Record Number: [id number]. Date of : Patient Status: Inpatient. Attending Provider: Yared Newount Number: [id number]. Date: 12/06/16 17:09Initialization Date: 12/06/16 17:09. - General Post-Op/Procedure Note. Date of Surgery/Procedure: 12/06/16. Operative Procedure(s): Low segment transverse primary with left inferior extension approximately 2.5-3 cm towards the cervix. (Suggested patient may want to consider repeat section). Pre Op Diagnosis: 39 weeks gestation, failure to progress, nonreassuring heart rate pattern. Post-Op Diagnosis: Same plus nuchal cord 1 tight and occiput posterior presentation. Anesthesia Technique: Epidural. Primary Surgeon: Yared New. Secondary Surgeon: Suman Martin. Anesthesia Provider: Fahad Michaud. Test Clerk: Paco Lombardo (MS4). Test Clerk: Jinny James. Fluid Replacement , Intraop: 2,000. Output, Urine Amount: 325. EBL in mLs: 750. Drain/Tube Comments:: Hanna catheter to gravity drainage close system. Complications: None. Condition: Good. Free Text/Narrative:: Intake & Output. 12/06/1708. 06:5914:5922:[id number]. Intake [id number]. Output [id number]. [id number]. Patient was transported to the operating room and placed under epidural anesthesia in the supine position and prepared and draped in a sterile fashion vaginal and abdominal prep. Hanna catheter had been placed to gravity drainage. SCDs in place and functioning prior surgery. Patient received 2 g of Ancef intravenously prior to surgery. Timeout performed confirming name date of and procedure as section. Adequate level of anesthesia was confirmed. The was brought to the operating room. Injecting 20 mL of 0.5% Marcaine without epinephrine in the planned incision area of the incision made and carried sharp section to into the anterior fascia. The anterior fascia was entered transversely and peritoneal cavity then entered bladder flap created pushed caudad low segment transverse section was performed the infant was persistent occiput posterior the head was elevated and carefully rotated nuchal cord 1 tight was reduced and vacuum was applied 2 in the green 2. The infant was delivered male liveborn [address] Reardon package checker in attendance and cared for the . Cord blood collected from normal three-vessel cord placenta removed manually endometrial cavity inspected and remnants of membranes removed sponge needle pack asthma sharp count correct times one the uterine incision closed in 2 layers with 0 Monocryl running locking suture for the first layer and a second layer running locking suture including 2 layers with the inferior left side extension towards the cervix. The incision appeared normal no bleeding both tubes and ovaries were normal clot screen from the gutters and cul-de-sac uterus replaced into the abdominal cavity reinspection of the uterine incision showed no bleeding. Sponge needle pack asthma sharp count correct 2 and the abdominal cavity was closed with #1 PDS for the anterior fascia 3 interrupted sutures of 0 Monocryl placed to close the subcutaneous tissue. The skin was closed subcuticular 3-0 Monocryl. Dermabond Preneo applied. Patient was transported postanesthesia care unit in satisfactory condition no blood transfusions required not anticipated. Patient received Toradol 30 mg IV postop. Clots were cleaned from the vagina at the end of the procedure. 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 (Suggested patient may want to consider repeat section) Complications: None Consults: None Hospital Course: Uneventful - Patient Instructions Diet: Regular Diet as Tolerated Driving: Do Not Drive (2 weeks unless necessary to go to doctors appointment.) Showering/Bathing: May Shower, No Tub Bathing/Swimming (6 weeks) Notify Provider of: Fever, Increased Pain, Swelling and Redness, Drainage, Nausea and/or Vomiting - Discharge Plan Home Medications: Home Meds Citalopram [Celexa] 20 mg PO DAILY 04/03/16 [History] Insulin Aspart [Novolog Flexpen] 25 units SUBCUT TID 04/03/16 [History] Insulin Glarg,Human.Rec.Analog [Lantus Solostar] 19 unit SUBCUT ASDIRECTED 04/03 [History] Cetirizine [ZyrTEC] 10 mg PO DAILY 12/04/16 [History] Docusate Sodium [Colace] 300 mg PO BID 12/04/16 [History] Dfu801/FA/Omega3/Dha/Fish Oil [ Gummies] 1 each PO 12/04/16 [History] buPROPion [Wellbutrin SR] 150 mg PO DAILY 12/04/16 [History] Acetaminophen [Tylenol] 650 mg PO Q6H PRN tablet 12/09/16 [Rx] Bacitracin/Neomycin/Polymyxin [Neosporin Oint] 0 gm TOP TID tube 12/09/16 [Rx] Docusate Sodium [Colace] 100 mg PO TID PRN cap 12/09/16 [Rx] Ibuprofen [IJD: Ibuprofen] 600 mg PO Q6H PRN tablet 12/09/16 [Rx] Patient Handouts: Mastitis, Kgzq-uk-[id number], Depression and Baby Blues , Care After Delivery, Breast Pumping Tips, Kiod-hr-Bdgx, Challenges and Solutions Referrals: Yared New MD [Primary Care Provider] - (4 weeks) - Discharge Summary/Plan Comment DC Time >30 min.: No - Patient Data Vitals - Most Recent: Last Vital Signs Temp 98.1 F 12/09/16 04:51 Pulse 87 12/09/16 04:51 Resp 15 12/09/16 04:51 BP 119/68 12/09/16 04:51 Pulse Ox 98 12/09/16 04:51 Weight - Most Recent: 229 lb I&O - Last 24 hours: Intake & Output 12/08/16 12/09/16 12/09/16 22:59 06:59 14:59 Intake Total 320 180 Balance 320 180 Med Orders - Current: Current Medications Acetaminophen (Tylenol) 650 mg PO Q6H PRN PRN Reason: Pain (mild 1-3) Docusate Sodium (Colace) 100 mg PO TID PRN PRN Reason: Constipation Last Admin: 12/09/16 08:14 Dose: 100 mg Ibuprofen (Motrin) 600 mg PO Q4H PRN PRN Reason: Pain Last Admin: 12/09/16 08:10 Dose: 600 mg Insulin Aspart (Novolog) 0 unit SUBCUT TIDMEALS [facility] Last Admin: 12/09/16 08:11 Dose: 8 units Neomycin/Polymyxin/Bacitracin (Neosporin Oint) 0 gm TOP TID [facility] Last Admin: 12/09/16 11:09 Dose: Not Given Cetirizine 10 MgPt (Own Med) 10 mg PO DAILY [facility] Last Admin: 12/09/16 11:09 Dose: 10 mg Oxycodone/Acetaminophen (Percocet 325-5 Mg) 2 tab PO Q6H PRN PRN Reason: Pain Bupropion 150 Mg Tab (.Sr) 0 each PO BEDTIME [facility] Last Admin: 12/08/16 21:21 Dose: 1 each Lantus*Pt Own Med* 15 each SUBCUT BID [facility] Last Admin: 12/09/16 08:13 Dose: 10 each Discontinued Medications Bupivacaine HCl (Marcaine 0.5%) Confirm Administered Dose 30 ml .ROUTE .STK-MED ONE Stop: 12/06/16 15:38 Last Admin: 12/06/16 16:21 Dose: 20 ml Bupivacaine HCl (Sensorcaine-Mpf 0.25%) 10 ml .ROUTE .STK-MED ONE Stop: 12/06/16 05:01 Cefazolin Sodium (Ancef) Confirm Administered Dose 2 gm .ROUTE .STK-MED ONE Stop: 12/06/16 16:01 Citric Acid/Sodium Citrate (Bicitra Solution) 30 ml PO ONETIME ONE Stop: 12/06/16 15:37 Last Admin: 12/06/16 16:04 Dose: 30 ml Diphenhydramine HCl (Benadryl) 25 mg IVPUSH Q6H PRN PRN Reason: Itching Ephedrine Sulfate (Ephedrine Sulfate) 5 mg IVPUSH ASDIRECTED PRN PRN Reason: Hypotension Fentanyl (Sublimaze) 100 mcg EPIDUR Q3H PRN PRN Reason: Pain Last Admin: 12/06/16 12:13 Dose: 100 mcg Fentanyl (Sublimaze) 50 mcg IVPUSH Q5M PRN PRN Reason: PAIN Fentanyl/Bupivacaine HCl (Fentanyl/Bupivacaine/Ns 2 Mcg-0.125% 100 Ml) 100 ml EPIDUR ASDIRECTED BIRDIE Last Admin: 12/06/16 12:13 Dose: 100 ml Gentamicin Sulfate (Gentamicin) Confirm Administered Dose 20 mg .ROUTE .STK-MED ONE Stop: 12/05/16 16:07 Last Admin: 12/05/16 16:17 Dose: Not Given Insulin Human Regular 100 unit (/ Sodium Chloride) 100 mls @ 0.5 mls/hr IV TITRATE BIRDIE; 0.5 UNIT/HR PRN Reason: Protocol Last Titration: 12/06/16 07:03 Dose: 1 unit/hr, 1 mls/hr Lactated Ringer's (Ringers, Lactated) 1,000 mls @ 125 mls/hr IV ASDIRECTED BIRDIE Last Infusion: 12/06/16 15:06 Dose: 30 mls/hr Oxytocin/Lactated Ringer's (Pitocin In Lr 10 Units/1,000 Ml) 10 unit in 1,000 mls @ 12 mls/hr IV TITRATE BIRDIE; 2 MUNITS/MIN PRN Reason: Protocol Ampicillin Sodium 2 gm/ Sodium (Chloride) 100 mls @ 200 mls/hr IV ONETIME ONE Stop: 12/04/16 23:14 Last Admin: 12/05/16 09:57 Dose: Not Given Ampicillin Sodium 1 gm/ Sodium (Chloride) 100 mls @ 200 mls/hr IV Q4H BIRDIE Last Admin: 12/06/16 15:10 Dose: 100 mls/hr Oxytocin/Lactated Ringer's (Pitocin In Lr 10 Units/1,000 Ml) 10 unit in 1,000 mls @ 500 mls/hr IV ONETIME ONE Stop: 12/05/16 09:59 Last Admin: 12/08/16 08:16 Dose: Not Given Oxytocin/Lactated Ringer's (Pitocin In Lr 10 Units/1,000 Ml) 10 unit in 1,000 mls @ 12 mls/hr IV TITRATE BIRDIE; 2 MUNITS/MIN PRN Reason: Protocol Last Titration: 12/05/16 18:49 Dose: 0 munits/min, 0 mls/hr Lactated Ringer's (Ringers, Lactated) 1,000 mls @ 125 mls/hr IV ASDIRECTED BIRDIE Last Infusion: 12/05/16 18:57 Dose: 30 mls/hr Oxytocin 20 unit/ Lactated (Ringer's) 1,002 mls @ 60.12 mls/hr IV TITRATE BIRDIE; 20 MUNITS/MIN PRN Reason: Protocol Last Titration: 12/06/16 15:23 Dose: 0 munits/min, 0 mls/hr Dextrose/Water (Dextrose 5% In Water) 1,000 mls @ 100 mls/hr IV ASDIRECTED BIRDIE Last Admin: 12/06/16 11:08 Dose: 100 mls/hr Oxytocin/Lactated Ringer's (Pitocin In Lr 10 Units/1,000 Ml) Confirm Administered Dose 10 unit in 1,000 mls @ as directed IV .STK-MED ONE Stop: 12/06/16 09:09 Last Admin: 12/06/16 10:30 Dose: Not Given Cefazolin Sodium/Dextrose 2 gm (/ Premix) 50 mls @ 100 mls/hr IV ONETIME ONE Stop: 12/06/16 16:05 Last Admin: 12/08/16 08:17 Dose: Not Given Lactated Ringer's (Ringers, Lactated) 1,000 mls @ 125 mls/hr IV ASDIRECTED BIRDIE Lactated Ringer's (Ringers, Lactated) Confirm Administered Dose 1,000 mls @ as directed .ROUTE .STK-MED ONE Stop: 12/06/16 17:11 Lactated Ringer's (Ringers, Lactated) Confirm Administered Dose 1,000 mls @ as directed .ROUTE .STK-MED ONE Stop: 12/06/16 17:11 Dextrose/Water (Dextrose 5% In Water) 1,000 mls @ 100 mls/hr IV ASDIRECTED [facility] Last Admin: 12/06/16 22:08 Dose: 100 mls/hr Insulin Human Regular 100 unit (/ Sodium Chloride) 100 mls @ 0.5 mls/hr IV TITRATE BIRDIE; 0.5 UNIT/HR PRN Reason: Protocol Last Titration: 12/07/16 06:08 Dose: 0 unit/hr, 0 mls/hr Insulin Aspart (Novolog Mix 70-30) 30 unit SUBCUT BIDMEALS ONE Stop: 12/05/16 20:31 Insulin Aspart (Novolog) 0 unit SUBCUT QIDACANDBED [facility] Last Admin: 12/06/16 17:28 Dose: Not Given Insulin Detemir (Levemir) 15 unit SUBCUT BID [facility] Ketorolac Tromethamine (Toradol) Confirm Administered Dose 30 mg .ROUTE .STK- MED ONE Stop: 12/06/16 16:47 Ketorolac Tromethamine (Toradol) 30 mg IVPUSH Q6H [facility] Stop: 12/07/16 11:01 Last Admin: 12/07/16 11:29 Dose: 30 mg Lidocaine/Epinephrine (Xylocaine-Mpf 2%-Epi 1:200,000) Confirm Administered Dose 20 ml .ROUTE .STK-MED ONE Stop: 12/06/16 16:04 Metoclopramide HCl (Reglan) 10 mg IVPUSH ONETIME ONE Stop: 12/06/16 15:37 Last Admin: 12/06/16 16:03 Dose: 10 mg Misoprostol (Cytotec) Confirm Administered Dose 25 mcg .ROUTE .STK-MED ONE Stop: 12/04/16 21:18 Last Admin: 12/04/16 23:03 Dose: 25 mcg Misoprostol (Cytotec) 25 mcg VAG ONETIME ONE Stop: 12/04/16 21:31 Last Admin: 12/05/16 07:57 Dose: Not Given Misoprostol (Cytotec) 25 mcg VAG Q3H [facility] Stop: 12/05/16 03:31 Last Admin: 12/05/16 03:38 Dose: 25 mcg Morphine Sulfate (Duramorph Pf) Confirm Administered Dose 10 mg .ROUTE .STK-MED ONE Stop: 12/06/16 16:01 Nalbuphine HCl (Nubain) 10 mg IVPUSH Q2H PRN PRN Reason: Pain (moderate 4-6) Non-Formulary Medication (Bupropion) 150 mg PO DAILY [facility] Non-Formulary Medication (Docusate Sodium [Colace]) 300 mg PO BID [facility] Ondansetron HCl (Zofran) 4 mg IVPUSH ONETIME PRN PRN Reason: Nausea/Vomiting Oxytocin (Pitocin) 10 unit IV ONETIME ONE Stop: 12/05/16 00:31 Last Admin: 12/08/16 08:16 Dose: Not Given Oxytocin (Pitocin) 10 unit IV ONETIME ONE Stop: 12/05/16 08:01 Last Admin: 12/08/16 08:16 Dose: Not Given Oxytocin (Pitocin) Confirm Administered Dose 20 unit .ROUTE .STK-MED ONE Stop: 12/06/16 09:08 Last Admin: 12/06/16 10:03 Dose: Not Given Oxytocin (Pitocin) Confirm Administered Dose 10 unit .ROUTE .STK-MED ONE Stop: 12/06/16 16:04 Oxytocin (Pitocin) Confirm Administered Dose 10 unit .ROUTE .STK-MED ONE Stop: 12/06/16 17:12 Bupropion 150 Mg Tab (.Sr) 0 each PO DAILY [facility] Last Admin: 12/05/16 15:18 Dose: Not Given Lantus Insulin U-100 (Own Med) 0 each SUBCUT DAILY@2029 [facility] Last Admin: 12/05/16 21:08 Dose: 30 each Bupropion 150 Mg Tab (.Sr) 0 each PO BEDTIME [facility] Last Admin: 12/05/16 21:04 Dose: 150 each Lantus Insulin U-100 (Own Med) 0 each SUBCUT DAILY@2029 [facility] Last Admin: 12/06/16 21:11 Dose: 15 each Sodium Chloride (Saline Flush) 10 ml FLUSH ASDIRECTED PRN PRN Reason: Keep Vein Open Sodium Chloride (Saline Flush) 10 ml FLUSH ASDIRECTED PRN PRN Reason: Keep Vein Open *Q Meaningful Use (DIS) - VTE *Q VTE Criteria *Q: - Stroke *Q Stroke Criteria *Q: - AMI *Q AMI Criteria *Q:
[2016-12-09 13:32] VITALS: BP 132/70
== END 2016-12-09 15:00 | disposition home or self-care (01) | DRG 540 ==
LOC: JD.OB 16:27 → OBSVTOIN 12-06 16:27 → JD.OB 12-06 16:27
PROVIDERS: ADMIT Obstetrics & Gynecology; ATTEND Obstetrics & Gynecology
PROC: 3E0P7GC Introduction of Other Therapeutic Substance into Female Reproductive, Via Natural or Artificial Opening (ICD-10-PCS; 2016-12-04)
PROC: 00HU33Z Insertion of Infusion Device into Spinal Canal, Percutaneous Approach (ICD-10-PCS; 2016-12-04)
PROC: 3E0R3CZ (ICD-10-PCS; 2016-12-04)
PROC: 3E033VJ Introduction of Other Hormone into Peripheral Vein, Percutaneous Approach (ICD-10-PCS; 2016-12-05)
PROC: 10907ZC Drainage of Amniotic Fluid, Therapeutic from Products of Conception, Via Natural or Artificial Opening (ICD-10-PCS; 2016-12-05)
PROC: 10D00Z1 Extraction of Products of Conception, Low, Open Approach (ICD-10-PCS; principal; 2016-12-06)
DX: O24.02 Pre-existing type 1 diabetes mellitus, in childbirth (principal); E10.649 Type 1 diabetes mellitus with hypoglycemia without coma; O99.824 Streptococcus B carrier state complicating childbirth; Z3A.39 39 weeks gestation of pregnancy; Z37.0 Single live birth; Z79.4 Long term (current) use of insulin; O99.284 Endocrine, nutritional and metabolic diseases complicating childbirth; E06.3 Autoimmune thyroiditis; O75.89 Other specified complications of labor and delivery; G54.0 Brachial plexus disorders; O99.344 Other mental disorders complicating childbirth; F41.9 Anxiety disorder, unspecified; O76 Abnormality in fetal heart rate and rhythm complicating labor and delivery; O62.0 Primary inadequate contractions; O69.81X0 Labor and delivery complicated by cord around neck, without compression, not applicable or unspecified; Z79.899 Other long term (current) drug therapy
CPT/HCPCS: 01967; 01968; 36415; 82962; 84439; 84443; 85025; 86850; 86900; 86901; A9270-GY; J0290; J0690; J1817; J1885; J2270; J2590; J2765; J3010; J7030; J7060; J7120

== ENCOUNTER 2018-03-20 07:32 | Emergency (ER) | payer BC ==
[2018-03-20 07:38] VITALS: BP 114/72
[2018-03-20] MEDS ORDERED: LORazepam 2 MG/ML SDV IVPUSH ONE (07:42)
[2018-03-20] MEDS: LORazepam 2 MG/ML SDV IVPUSH STA ×2 (07:48→07:51)
--- NOTE | 2018-03-20 08:04 | EDM.PDOC ---
ED HPI GENERAL MEDICAL PROBLEM - General Chief Complaint: Neurological Problem Stated Complaint: [facility] Time Seen by Provider: 03/20/18 07:39 Source of Information: Reports: Patient, EMS, Family (), RN Notes Reviewed History Limitations: Reports: Altered Mental Status (patient is confused) - History of Present Illness INITIAL COMMENTS - FREE TEXT/NARRATIVE: Report from EMS and the patient's . The patient has type 1 diabetes. The patient's states that he woke just after 06:00 this morning, finding the patient stiff and gagging. She was unresponsive. These are the same symptoms that she has had numerous times in the past when she has been hypoglycemic. The patient's states that the patient had hypoglycemic reactions in the family counselor of both 03/16/2018 and 03/17/2018. The patient's did not check the patient's blood glucose, but gave the patient glucagon , then checked her blood sugar a few minutes later, finding it to be 136. The patient opened her eyes, but did not talk, then subsequently suffered a brief, 20 to 30 second seizure before becoming unresponsive again. EMS was called. The patient then had a second 20 to 30 second seizure after the paramedics arrived. Although the patient has a history of hypoglycemic reactions, she has not previously suffered a seizure, according to the patient's . EMS reported that the patient appeared to be having a generalized tonic-clonic seizure, which resolved in their presence. She then became confused and combative. She tore the IV out that they had placed, therefore no medication was given per EMS. Accu-chek was 210 for EMS. The patient may have bitten the tip of her tongue, and there was loss of bladder continence. The patient is 12 weeks , . Her Production Dispatcher is Dr. Quan. Here in the ED, the patient is found to be mildly tachycardic, but with a normal blood pressure, afebrile. - Related Data Allergies Allergy/AdvReac Type Severity Reaction Status Date / Time Dermabond Preneo Allergy Blisters Uncoded 03/20/18 07:39 Home Meds: Home Meds Citalopram [Celexa] 20 mg PO DAILY 04/03/16 [History] Insulin Aspart [Novolog Flexpen] 25 units SUBCUT TID 04/03/16 [History] Insulin Glarg,Human.Rec.Analog [Lantus Solostar] 19 unit SUBCUT ASDIRECTED 04/03 [History] Cetirizine [ZyrTEC] 10 mg PO DAILY 12/04/16 [History] Docusate Sodium [Colace] 300 mg PO BID 12/04/16 [History] Nio321/FA/Omega3/Dha/Fish Oil [ Gummies] 1 each PO 12/04/16 [History] buPROPion [Wellbutrin SR] 150 mg PO DAILY 12/04/16 [History] Acetaminophen [Tylenol] 650 mg PO Q6H PRN tablet 12/09/16 [Rx] Bacitracin/Neomycin/Polymyxin [Neosporin Oint] 0 gm TOP TID tube 12/09/16 [Rx] Docusate Sodium [Colace] 100 mg PO TID PRN cap 12/09/16 [Rx] Ibuprofen [IJD: Ibuprofen] 600 mg PO Q6H PRN tablet 12/09/16 [Rx] Past Medical History HEENT History: Reports: Impaired Vision Psychiatric History: Reports: PTSD Endocrine/Metabolic History: Reports: Diabetes, Type I, Hypothyroidism ( Angel's thyroiditis) - Past Surgical History HEENT Surgical History: Reports: Naso-Sinus Surgery (repair of deviated septum) , Oral Surgery (wisdom teeth extraction), Tonsillectomy GI Surgical History: Reports: Appendectomy, Cholecystectomy (around 2014) Social & Family History - Family History Family Medical History: Noncontributory Endocrine/Metabolic: Reports: Diabetes, type II (Paternal grandfather, maternal grandmothers x2) - Tobacco Use Smoking Status *Q: Never Smoker - Caffeine Use Caffeine Use: Reports: Coffee - Recreational Drug Use Recreational Drug Use: No - Living Situation & Occupation Living situation: Reports: , with Spouse, with Family Occupation: Unemployed ED ROS GENERAL - Review of Systems Review Of Systems: ROS reveals no pertinent complaints other than HPI. - Physical Exam Exam: See Below Exam Limited By: No Limitations General Appearance: WD/WN, No Apparent Distress, Lethargic Eye Exam: Bilateral Eye: EOMI, Normal Inspection Ears: Normal External Exam Nose: Normal Inspection Throat/Mouth: Normal Inspection, Normal Lips, Normal Teeth, Normal Gums, Normal Oropharynx, Normal Voice, No Airway Compromise, Evidence of Tongue Biting ( small red spot on right tip of tongue) Head Exam: Atraumatic, Normocephalic Neck: Normal Inspection, Full Range of Motion Respiratory/Chest: No Respiratory Distress, Lungs Clear, Normal Breath Sounds, No Accessory Muscle Use Cardiovascular: Normal Peripheral Pulses, Regular Rate, Rhythm, No Gallop, No JVD, No Murmur, No Rub GI/Abdominal: Normal Bowel Sounds, Soft, Non-Tender, No Organomegaly, No Distention, No Abnormal Bruit, No Mass (Female) Exam: Deferred Rectal (Female) Exam: Deferred Neuro Exam (Abbreviated): Oriented, No Motor/Sensory Deficits, Confused (gave incorrect PMHx information) Back Exam: Normal Inspection, Full Range of Motion, NT Extremities: Normal Inspection, Normal Range of Motion, Normal Capillary Refill Psychiatric: Other (Unable to assess) Skin Exam: Warm, Dry, Intact, Normal Color, No Rash Course - Vital Signs Last Recorded V/S: Last Vital Signs Temp 37.1 C 03/20/18 07:36 Pulse 114 H 03/20/18 07:36 Resp 16 03/20/18 07:36 BP 114/72 03/20/18 07:36 Pulse Ox 94 L 03/20/18 07:36 - Orders/Labs/Meds Orders: Active Orders 24 hr Category Date Time Status Head wo Cont [CT] Stat Exams 03/20/18 07:45 Taken Dextrose 5%-0.9% NaCl [Dextrose 5%-Normal Saline] 1,000 Med 03/20/18 08:15 Active ml IV ASDIRECTED Medication Orders Dextrose/Sodium Chloride (Dextrose 5%-Normal Saline) 1,000 mls @ 75 mls/hr IV ASDIRECTED IBRDIE Last Admin: 03/20/18 08:23 Dose: 75 mls/hr Labs: Laboratory Tests 03/20/18 03/20/18 03/20/18 Range/Units 07:30 07:30 09:20 WBC 32.01 H (3.98-10.04) K/mm3 RBC 4.68 (3.98-5.22) M/mm3 Hgb 13.6 (11.2-15.7) gm/L Hct 41.0 (34.1-44.9) % MCV 87.6 (79.4-94.8) fl MCH 29.1 (25.6-32.2) pg MCHC 33.2 (32.2-35.5) g/dl RDW Std Deviation 42.6 (36.4-46.3) fL Plt Count 393 H (182-369) K/mm3 MPV 9.5 (9.4-12.3) fl Neutrophils % (Manual) 75 H (40-60) % Band Neutrophils % 7 (0-10) % Lymphocytes % (Manual) 10 L (20-40) % Atypical Lymphs % 3 % Monocytes % (Manual) 4 (2-10) % Eosinophils % (Manual) 1 (0.7-5.8) % Basophils % (Manual) 0 L (0.1-1.2) Toxic Granulation 2+ moderate Platelet Estimate Adequate Plt Morphology Comment Normal RBC Morph Comment Normal Sodium 137 (136-145) mEq/L Potassium 3.7 (3.5-5.1) mEq/L Chloride 101 (98-107) mEq/L Carbon Dioxide 12 L (21-32) mEq/L Anion Gap 27.7 H (5-15) BUN 8 (7-18) mg/dL Creatinine 1.1 H (0.55-1.02) mg/dL Est Cr Clr Drug Dosing 79.57 mL/min Estimated GFR (MDRD) 59 (>60) mL/min BUN/Creatinine Ratio 7.3 L (14-18) Glucose 263 H (74-106) mg/dL Calcium 8.6 (8.5-10.1) mg/dL Phosphorus 3.2 (2.6-4.7) mg/dL Magnesium 2.0 (1.8-2.4) mg/dl Total Bilirubin 0.2 (0.2-1.0) mg/dL AST 18 (15-37) U/L ALT 21 (14-59) U/L Alkaline Phosphatase 79 (46-116) U/L Total Protein 7.3 (6.4-8.2) g/dl Albumin 3.2 L (3.4-5.0) g/dl Globulin 4.1 gm/dL Albumin/Globulin Ratio 0.8 L (1-2) Urine Color Yellow (Yellow) Urine Appearance Clear (Clear) Urine pH 5.5 (5.0-8.0) Ur Specific Harlan > or = 1.030 (1.005-1.030) Urine Protein 1+ H (Negative) Urine Glucose (UA) 2+ H (Negative) Urine Ketones 3+ H (Negative) Urine Occult Blood Negative (Negative) Urine Nitrite Negative (Negative) Urine Bilirubin Negative (Negative) Urine Urobilinogen 0.2 (0.2-1.0) Ur Leukocyte Esterase Negative (Negative) Urine RBC Not seen (0-5) /hpf Urine WBC 0-5 (0-5) /hpf Ur Epithelial Cells 0-5 (0-5) /hpf Urine Bacteria Not seen (FEW) /hpf Urine Mucus Not seen (FEW) /hpf 03/20/18 03/20/18 Range/Units 11:15 11:15 WBC 21.20 H (3.98-10.04) K/mm3 RBC (3.98-5.22) M/mm3 Hgb (11.2-15.7) gm/L Hct (34.1-44.9) % MCV (79.4-94.8) fl MCH (25.6-32.2) pg MCHC (32.2-35.5) g/dl RDW Std Deviation (36.4-46.3) fL Plt Count (182-369) K/mm3 MPV (9.4-12.3) fl Neutrophils % (Manual) 92 H (40-60) % Band Neutrophils % 0 (0-10) % Lymphocytes % (Manual) 7 L (20-40) % Atypical Lymphs % 0 % Monocytes % (Manual) 1 L (2-10) % Eosinophils % (Manual) 0 L (0.7-5.8) % Basophils % (Manual) 0 L (0.1-1.2) Toxic Granulation Platelet Estimate Adequate Plt Morphology Comment Normal RBC Morph Comment Normal Sodium 133 L (136-145) mEq/L Potassium 3.9 (3.5-5.1) mEq/L Chloride 100 (98-107) mEq/L Carbon Dioxide 18 L (21-32) mEq/L Anion Gap 18.9 H (5-15) BUN 10 (7-18) mg/dL Creatinine 0.9 (0.55-1.02) mg/dL Est Cr Clr Drug Dosing 97.26 mL/min Estimated GFR (MDRD) > 60 (>60) mL/min BUN/Creatinine Ratio 11.1 L (14-18) Glucose 291 H (74-106) mg/dL Calcium 8.4 L (8.5-10.1) mg/dL Phosphorus (2.6-4.7) mg/dL Magnesium (1.8-2.4) mg/dl Total Bilirubin (0.2-1.0) mg/dL AST (15-37) U/L ALT (14-59) U/L Alkaline Phosphatase (46-116) U/L Total Protein (6.4-8.2) g/dl Albumin (3.4-5.0) g/dl Globulin gm/dL Albumin/Globulin Ratio (1-2) Urine Color (Yellow) Urine Appearance (Clear) Urine pH (5.0-8.0) Ur Specific Harlan (1.005-1.030) Urine Protein (Negative) Urine Glucose (UA) (Negative) Urine Ketones (Negative) Urine Occult Blood (Negative) Urine Nitrite (Negative) Urine Bilirubin (Negative) Urine Urobilinogen (0.2-1.0) Ur Leukocyte Esterase (Negative) Urine RBC (0-5) /hpf Urine WBC (0-5) /hpf Ur Epithelial Cells (0-5) /hpf Urine Bacteria (FEW) /hpf Urine Mucus (FEW) /hpf Meds: Medications Generic Name Dose Route Start Last Admin Trade Name Freq PRN Reason Stop Dose Admin Dextrose/Sodium Chloride 1,000 mls @ 75 mls/hr 03/20/18 08:15 03/20/18 08:23 Dextrose 5%-Normal Saline IV 75 mls/hr ASDIRECTED BIRDIE Administration Discontinued Medications Generic Name Dose Route Start Last Admin Trade Name Freq PRN Reason Stop Dose Admin Lorazepam 1 mg 03/20/18 07:42 03/20/18 07:47 Ativan IVPUSH 03/20/18 07:43 1 mg ONETIME ONE Administration Lorazepam 1 mg 03/20/18 07:44 03/20/18 07:51 Ativan IVPUSH 03/20/18 07:45 Not Given ONETIME STA - Re-Assessments/Exams Free Text/Narrative Re-Assessment/Exam: 03/20/18 08:16 Although the patient's did not check her blood sugar prior to giving glucagon, the patient's seizure is likely due to a hypoglycemic reaction, given that the patient's initial presentation was the same as her prior hypoglycemic reactions. It is curious, however, that she had 2 apparent seizures after her blood glucose was found to be 136. I have ordered a CT scan of the head to look for any evidence of an intracranial lesion. I have ordered blood work, including a magnesium level and phosphate level, to see if an electrolyte abnormality might explain a lowered seizure threshold. The patient cannot have preeclampsia. She is under 20 weeks gestation, and her blood pressure is not elevated. Nevertheless, I have ordered a urinalysis to look for protein. I have ordered heart tones. The patient was given 1 mg of IV Ativan here in the ED, and I have ordered D5 NS at 75 mL per hour, just to keep her sugar up. 03/20/18 08:45 The patient's WBC count has returned significantly elevated at 32.01. This is not to be unexpected, due to demargination, however, her band count is elevated at 7%, suggesting the presence of a bacterial infection. I went back and asked both the patient and her if the patient has had any recent symptoms of illness, such as fever or cough, and both reiterated that she has not. 03/20/18 09:10 CT/head without contrast is read by [facility] as "No acute intracranial abnormality. If clinical concern persist consider MRI." 03/20/18 10:52 The patient is still tired, but otherwise alert and oriented. No new seizure activity. heart tones were recorded at 140 bpm. Accu-Chek was 313 at 10:30. I have asked Ashutosh RN to turn off the IV fluid. I have ordered a repeat WBC with manual differential and BMP, to recheck the patient's bicarbonate level. 03/20/18 12:02 Repeat WBC is down to 21.2, with 0% bandemia. Repeat BMP shows the bicarbonate level up to 18. While these have not normalized, they are showing significant improvement. I believe we can safely discharge the patient home. Because this is the patient's first seizure, antiepileptic medications are not recommended, however, I will refer the patient to a Neurologist for an EEG. The Neurologist can then determine if the patient would benefit from antiepileptic medication. Departure - Departure Time of Disposition: 12:03 Disposition: Home, Self-Care 01 Condition: Fair Clinical Impression: New onset seizure, High anion gap metabolic acidosis, Leukocytosis - Discharge Information *PRESCRIPTION DRUG MONITORING PROGRAM REVIEWED*: Not Applicable *COPY OF PRESCRIPTION DRUG MONITORING REPORT IN PATIENT WHIT: Not Applicable Instructions: Seizure, Adult Referrals: Sabrina Quan MD [Physician] - Shan Lowe MD [Ordering Only Provider] - Forms: ED Department Discharge Additional Instructions: You were seen in the emergency room after suffering 2 short seizures this morning. Workup in the ER included blood work, a urinalysis, a CT scan of your head, and a measurement of heart tones. Your workup was remarkable for an elevated CBC count, concerning for an infection, however, no source of infection was found. The elevated WBC count may have been a reaction to your having a seizure. This number significantly improved while in the ER. Your workup also found your bicarbonate level to be low, a condition known as metabolic acidosis. This is likely due to your seizure, and improved while in the ER. As discussed, current guidelines do not recommend starting a patient with new seizures on antiepileptic medications right away. Rather, current guidelines recommend that you follow-up with a Neurologist to have an EEG. The Neurologist can then determine if you require antiepileptic medication. Please follow-up with the Neurologist Dr. Shan Lowe, in [place], at the next available appointment. We strongly recommend that you notify the office of your Production Dispatcher, Dr. Sabrina Quan, Thursday morning, to let her know about your ER visit. In the meantime, continue to take your usual medications. Stay adequately hydrated. Keep a close eye on your blood sugars. If any other problems, please do not hesitate to return to the ER. - My Orders Last 24 Hours: My Active Orders 03/20/18 07:45 Head wo Cont [CT] Stat 03/20/18 08:15 Dextrose 5%-0.9% NaCl [Dextrose 5%-Normal Saline] 1,000 ml IV ASDIRECTED - Assessment/Plan Last 24 Hours: My Active Orders 03/20/18 07:45 Head wo Cont [CT] Stat 03/20/18 08:15 Dextrose 5%-0.9% NaCl [Dextrose 5%-Normal Saline] 1,000 ml IV ASDIRECTED
[2018-03-20] MEDS ORDERED: Dextrose 5%-0.9% NaCl 1,000 ML IV SCH (08:15)
--- NOTE | 2018-03-20 15:39 | CT ---
Head CT Technique: Multiple axial sections through the brain were obtained. Intravenous contrast was not utilized. Comparison: No prior intracranial imaging. Findings: Ventricles along with basal cisterns and sulci over the convexities appear within normal limits for the patient's age. No abnormal parenchymal densities are seen. No evidence of intracranial hemorrhage. No midline shift or mass effect is seen. No acute calvarial abnormality is identified. Bony exostosis is noted off the inner calvarium within the left frontal region measuring 7 mm which is incidental. Small calcification is noted within the cortical region of the right frontal region which is incidental. Impression: 1. Nothing acute is appreciated on noncontrast head CT exam. 2. Incidental calcifications as noted above. Note: Given the history of seizure, if no clinical etiology is present, nonemergent MRI could then be considered. Diagnostic code #2 I agree with preliminary report from [facility], finalized on 03/11/1918, 10:02 AM Central Time
== END 2018-03-20 12:38 | disposition home or self-care (01) ==
LOC: JD.ED 07:32
DX: O99.351 Diseases of the nervous system complicating pregnancy, first trimester (principal); R56.9 Unspecified convulsions; O99.281 Endocrine, nutritional and metabolic diseases complicating pregnancy, first trimester; E87.2 Acidosis; D72.829 Elevated white blood cell count, unspecified; O24.011 Pre-existing type 1 diabetes mellitus, in pregnancy, first trimester; E10.9 Type 1 diabetes mellitus without complications; Z91.048 Other nonmedicinal substance allergy status; O99.111 Other diseases of the blood and blood-forming organs and certain disorders involving the immune mechanism complicating pregnancy, first trimester; Z3A.12 12 weeks gestation of pregnancy
CPT/HCPCS: 36415; 70450; 80048; 80053; 81001; 83735; 84100; 85007; 85027; 85048; 96361; 96374; 99285; J2060; J7042; 99284

== ENCOUNTER 2018-03-24 07:24 | Emergency (ER) | payer BC ==
[2018-03-24 07:40] VITALS: BP 109/59
--- NOTE | 2018-03-24 08:19 | EDM.PDOC ---
ED HPI GENERAL MEDICAL PROBLEM - General Chief Complaint: Neurological Problem Stated Complaint: [facility] Time Seen by Provider: 03/24/18 07:40 Source of Information: Reports: Family (), RN Notes Reviewed History Limitations: Reports: Altered Mental Status (Patient is awake, but not answering any questions) - History of Present Illness INITIAL COMMENTS - FREE TEXT/NARRATIVE: The patient was seen by me on 03/20/2018 after having two possible seizures at home. The patient has type 1 diabetes, and is approximately 13 weeks . No prior history of seizures. The patient's stated at that time that he had woken just after 6:00 in the morning, finding the patient states and gagging. She was unresponsive. Her symptoms were similar to prior hypoglycemic events. The patient's did not check her blood sugar at that time, but gave glucagon, then checked her blood sugar a few minutes later, finding it to be 136. After the patient received glucagon, the patient opened her eyes, then suffered a 20 to 30 second episode of a generalized seizure before becoming unresponsive again. EMS was called, and while they were waiting for EMS to arrive, a second 20 to 30 second episode occurred. The patient was incontinent of urine. The paramedics witnessed the second episode. EMS found her blood glucose to be 210. Her blood pressure was not elevated. Workup in the ED included a CBC, CMP, magnesium level, phosphate level, a urinalysis, and a CT scan of her head, without contrast. Her WBC count returned elevated at 32.01 with 7% bandemia, however, a repeat WBC count was down to 21.2 with 0% bands. Her initial bicarbonate level was low at 12, with the remainder of the CMP being unremarkable. A repeat BMP found her bicarbonate level up to 18. The remainder of the patient's workup, including a CT scan of her head, was unremarkable. The patient was given 1 mg IV Ativan, and IV fluid of D5 NS. Given that this was the first episode of a seizure, the patient was not started on an antiepileptic. She was discharged home in good condition with the recommendation that she follow-up with her Make Ready Worker, Dr. Sabrina Quan, as well as the Neurologist Dr. Shan Lowe, on 03/22/2018. The patient now returns to the ED via EMS. According to the patient's , he again found the patient to be gagging, stiff, with her head going side to side, around 06:00 this morning. Her eyes were open, looking around, but she was unresponsive. This lasted around 15 seconds. The patient's gave the patient some Moise D, some of which she swallowed, some of which she spat out. The patient's then checked her blood glucose, finding it to be 146. The patient then had a second, followed by a third episode of rolling her eyes, stiff and shaking, foaming at the mouth, with erratic breathing, each lasting about 15 to 20 seconds, about 5 minutes apart. The patient's then called EMS. The patient then had 2 more episodes, to a total of 5 episodes, prior to EMS arriving. The patient had urinary incontinence. EMS found the patient's blood glucose to be 206. The patient's states that the patient has not had any recent illnesses. Her LMP was in early December - she is approximately 13 weeks gestation. This is her second . The patient's does not believe that the patient followed up with Dr. Quan, or called Dr. Lowe's office to make an appointment. (In my discussion with Dr. Quan at 09:48, she reported that the patient was seen by the high-risk OB Anand in [place] on Thursday, and that an ultrasound had been performed.) - Related Data Allergies Allergy/AdvReac Type Severity Reaction Status Date / Time Dermabond Preneo Allergy Blisters Uncoded 03/24/18 07:40 Home Meds: Home Meds Insulin Aspart [Novolog Flexpen] 25 units SUBCUT TID 04/03/16 [History] Insulin Glarg,Human.Rec.Analog [Lantus Solostar] 19 unit SUBCUT ASDIRECTED 04/03 [History] Cetirizine [ZyrTEC] 10 mg PO DAILY 12/04/16 [History] Orj150/FA/Omega3/Dha/Fish Oil [ Gummies] 1 each PO DAILY 12/04/16 [ History] buPROPion [Wellbutrin SR] 150 mg PO DAILY 12/04/16 [History] Acetaminophen [Tylenol] 650 mg PO Q6H PRN tablet 12/09/16 [Rx] Ibuprofen [IJD: Ibuprofen] 600 mg PO Q6H PRN tablet 12/09/16 [Rx] Past Medical History HEENT History: Reports: Impaired Vision 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 ADJUSTER History: Reports: : 2 Para: 1 Psychiatric History: Reports: PTSD Endocrine/Metabolic History: Reports: Diabetes, Type I, Hypothyroidism ( Angel's thyroiditis) - Past Surgical History HEENT Surgical History: Reports: Naso-Sinus Surgery (Repair of deviated septum) , Oral Surgery (wisdom teeth extraction), Tonsillectomy GI Surgical History: Reports: Appendectomy, Cholecystectomy (around 2014) Social & Family History - Family History Family Medical History: Noncontributory Endocrine/Metabolic: Reports: Diabetes, type II - Tobacco Use Smoking Status *Q: Never Smoker - Caffeine Use Caffeine Use: Reports: None - Recreational Drug Use Recreational Drug Use: No - Living Situation & Occupation Living situation: Reports: , with Spouse, with Family Occupation: Unemployed ED ROS GENERAL - Review of Systems Review Of Systems: ROS reveals no pertinent complaints other than HPI. - Physical Exam Exam: See Below Exam Limited By: Uncooperative (Patient does not follow any commands) General Appearance: WD/WN, No Apparent Distress, Other (Awake) Eye Exam: Bilateral Eye: EOMI, Normal Inspection Ears: Normal External Exam Nose: Normal Inspection Throat/Mouth: Normal Inspection, Normal Lips, No Airway Compromise Head Exam: Atraumatic, Normocephalic Neck: Normal Inspection Respiratory/Chest: No Respiratory Distress, Lungs Clear, Normal Breath Sounds, No Accessory Muscle Use, Other (did not take deep breaths on request) Cardiovascular: Normal Peripheral Pulses, Regular Rate, Rhythm, No Gallop, No JVD, No Murmur, No Rub GI/Abdominal: Normal Bowel Sounds, Soft, Non-Tender, No Organomegaly, No Distention, No Abnormal Bruit, No Mass (Female) Exam: Deferred Rectal (Female) Exam: Deferred Neuro Exam (Abbreviated): Other (Awake, but does not answer questions or follow commands) Extremities: Normal Inspection, Normal Range of Motion, Normal Capillary Refill Psychiatric: Other (Unable to assess) Skin Exam: Warm, Dry, Intact, Normal Color, No Rash Course - Vital Signs Last Recorded V/S: Last Vital Signs Temp 36.9 C 03/24/18 07:39 Pulse 106 H 03/24/18 07:39 Resp 14 01/02/19 07:39 BP 109/59 L 03/24/18 07:39 Pulse Ox 97 03/24/18 07:39 - Orders/Labs/Meds Labs: Laboratory Tests 03/24/18 03/24/18 03/24/18 Range/Units 08:08 08:31 08:31 WBC 17.58 H (3.98-10.04) K/mm3 RBC 4.47 (3.98-5.22) M/mm3 Hgb 12.9 (11.2-15.7) gm/L Hct 39.0 (34.1-44.9) % MCV 87.2 (79.4-94.8) fl MCH 28.9 (25.6-32.2) pg MCHC 33.1 (32.2-35.5) g/dl RDW Std Deviation 43.3 (36.4-46.3) fL Plt Count 298 (182-369) K/mm3 MPV 9.5 (9.4-12.3) fl Neutrophils % (Manual) 95 H (40-60) % Band Neutrophils % 1 (0-10) % Lymphocytes % (Manual) 3 L (20-40) % Atypical Lymphs % 0 % Monocytes % (Manual) 1 L (2-10) % Eosinophils % (Manual) 0 L (0.7-5.8) % Basophils % (Manual) 0 L (0.1-1.2) Toxic Granulation 2+ moderate Platelet Estimate Adequate RBC Morph Comment Normal Sodium 134 L (136-145) mEq/L Potassium 4.4 (3.5-5.1) mEq/L Chloride 100 (98-107) mEq/L Carbon Dioxide 21 (21-32) mEq/L Anion Gap 17.4 H (5-15) BUN 7 (7-18) mg/dL Creatinine 0.9 (0.55-1.02) mg/dL Est Cr Clr Drug Dosing 87.12 mL/min Estimated GFR (MDRD) > 60 (>60) mL/min BUN/Creatinine Ratio 7.8 L (14-18) Glucose 256 H (74-106) mg/dL POC Glucose 218 H (70-105) mg/dL Calcium 8.8 (8.5-10.1) mg/dL Phosphorus 1.9 L (2.6-4.7) mg/dL Magnesium 1.6 L (1.8-2.4) mg/dl Total Bilirubin 0.4 (0.2-1.0) mg/dL AST 212 H (15-37) U/L ALT 58 (14-59) U/L Alkaline Phosphatase 72 (46-116) U/L Creatine Kinase 75836 H (26-192) U/L Total Protein 6.9 (6.4-8.2) g/dl Albumin 2.9 L (3.4-5.0) g/dl Globulin 4.0 gm/dL Albumin/Globulin Ratio 0.7 L (1-2) Urine Color (Yellow) Urine Appearance (Clear) Urine pH (5.0-8.0) Ur Specific [place] (1.005-1.030) Urine Protein (Negative) Urine Glucose (UA) (Negative) Urine Ketones (Negative) Urine Occult Blood (Negative) Urine Nitrite (Negative) Urine Bilirubin (Negative) Urine Urobilinogen (0.2-1.0) Ur Leukocyte Esterase (Negative) Urine RBC (0-5) /hpf Urine WBC (0-5) /hpf Ur Epithelial Cells (0-5) /hpf Urine Bacteria (FEW) /hpf Urine Mucus (FEW) /hpf Urine Opiates Screen (NEGATIVE) Ur Buprenorphine Scrn (NEGATIVE) Ur Oxycodone Screen (NEGATIVE) Urine Methadone Screen (NEGATIVE) Ur Propoxyphene Screen (NEGATIVE) Ur Barbiturates Screen (NEGATIVE) Ur Tricyclics Screen (NEGATIVE) Ur Phencyclidine Scrn (NEGATIVE) Ur Amphetamine Screen (NEGATIVE) U Methamphetamines Scrn (NEGATIVE) U Benzodiazepines Scrn (NEGATIVE) U Cocaine Metab Screen (NEGATIVE) U Marijuana (THC) Screen (NEGATIVE) 03/24/18 03/24/18 Range/Units 09:05 09:05 WBC (3.98-10.04) K/mm3 RBC (3.98-5.22) M/mm3 Hgb (11.2-15.7) gm/L Hct (34.1-44.9) % MCV (79.4-94.8) fl MCH (25.6-32.2) pg MCHC (32.2-35.5) g/dl RDW Std Deviation (36.4-46.3) fL Plt Count (182-369) K/mm3 MPV (9.4-12.3) fl Neutrophils % (Manual) (40-60) % Band Neutrophils % (0-10) % Lymphocytes % (Manual) (20-40) % Atypical Lymphs % % Monocytes % (Manual) (2-10) % Eosinophils % (Manual) (0.7-5.8) % Basophils % (Manual) (0.1-1.2) Toxic Granulation Platelet Estimate RBC Morph Comment Sodium (136-145) mEq/L Potassium (3.5-5.1) mEq/L Chloride (98-107) mEq/L Carbon Dioxide (21-32) mEq/L Anion Gap (5-15) BUN (7-18) mg/dL Creatinine (0.55-1.02) mg/dL Est Cr Clr Drug Dosing mL/min Estimated GFR (MDRD) (>60) mL/min BUN/Creatinine Ratio (14-18) Glucose (74-106) mg/dL POC Glucose (70-105) mg/dL Calcium (8.5-10.1) mg/dL Phosphorus (2.6-4.7) mg/dL Magnesium (1.8-2.4) mg/dl Total Bilirubin (0.2-1.0) mg/dL AST (15-37) U/L ALT (14-59) U/L Alkaline Phosphatase (46-116) U/L Creatine Kinase (26-192) U/L Total Protein (6.4-8.2) g/dl Albumin (3.4-5.0) g/dl Globulin gm/dL Albumin/Globulin Ratio (1-2) Urine Color Yellow (Yellow) Urine Appearance Clear (Clear) Urine pH 5.5 (5.0-8.0) Ur Specific [place] > or = 1.030 (1.005-1.030) Urine Protein 2+ H (Negative) Urine Glucose (UA) 2+ H (Negative) Urine Ketones 3+ H (Negative) Urine Occult Blood 2+ H (Negative) Urine Nitrite Negative (Negative) Urine Bilirubin Negative (Negative) Urine Urobilinogen 0.2 (0.2-1.0) Ur Leukocyte Esterase Negative (Negative) Urine RBC 5-10 H (0-5) /hpf Urine WBC 0-5 (0-5) /hpf Ur Epithelial Cells 0-5 (0-5) /hpf Urine Bacteria Few (FEW) /hpf Urine Mucus Not seen (FEW) /hpf Urine Opiates Screen Negative (NEGATIVE) Ur Buprenorphine Scrn Negative (NEGATIVE) Ur Oxycodone Screen Negative (NEGATIVE) Urine Methadone Screen Negative (NEGATIVE) Ur Propoxyphene Screen Negative (NEGATIVE) Ur Barbiturates Screen Negative (NEGATIVE) Ur Tricyclics Screen Negative (NEGATIVE) Ur Phencyclidine Scrn Negative (NEGATIVE) Ur Amphetamine Screen Negative (NEGATIVE) U Methamphetamines Scrn Negative (NEGATIVE) U Benzodiazepines Scrn Negative (NEGATIVE) U Cocaine Metab Screen Negative (NEGATIVE) U Marijuana (THC) Screen Negative (NEGATIVE) Meds: Medications Discontinued Medications Generic Name Dose Route Start Last Admin Trade Name Freq PRN Reason Stop Dose Admin Levetiracetam 1,000 mg/ Sodium 110 mls @ 400 mls/hr 03/24/18 09:09 03/24/18 10:08 Chloride IV 03/24/18 09:25 400 mls/hr ONETIME STA Administration Magnesium Sulfate 2 gm/ Premix 50 mls @ 50 mls/hr 03/24/18 09:13 03/24/18 09: 27 IV 03/24/18 10:12 50 mls/hr ONETIME STA Administration Sodium Chloride 1,000 mls @ 999 mls/hr 03/24/18 09:53 03/24/18 10:08 Normal Saline IV 03/24/18 10:53 999 mls/hr ONETIME ONE Administration Levetiracetam 500 mg/ Sodium 105 mls @ 400 mls/hr 03/24/18 10:58 03/24/18 11: 34 Chloride IV 03/24/18 11:13 400 mls/hr ONETIME STA Administration Sodium Chloride Confirm 03/24/18 11:40 03/24/18 11:53 Normal Saline Administered 03/24/18 11:41 Not Given Dose 1,000 mls @ as directed .ROUTE .STK-MED ONE Sodium Phosphate 250 mg 03/24/18 09:17 03/24/18 10:06 Neutra-Phos PO 03/24/18 09:18 250 mg ONETIME ONE Administration - Re-Assessments/Exams Free Text/Narrative Re-Assessment/Exam: 03/24/18 09:11 Notified by lab that the patient's CPK is high. They will have to diluted to get a value. This indicates that the patient's seizures are legitimate. I have ordered Keppra 1 g IV loading dose. 03/24/18 09:21 The patient's magnesium level returned low at 1.6. I have ordered 1 g Mg-rider. The patient's phosphate returned low at 1.9. I have ordered 250 mg oral Neutra- Phos. 03/24/18 09:43 The patient's CPK has returned substantially elevated at 17,105. I'm going to recommend admission to the hospital for IV fluid. 03/24/18 09:[address] Quan at 09:48. As this is primarily a medical issue, not an obstetric issue, she does not feel comfortable admitting the patient. She recommended admission to the medicine service. Because we do not have Neurology here, I am going to recommend transfer to [place]. Dr. Quan did not object to aggressive IV hydration. I have ordered NS at 1L/hr. 03/24/18 09:57 Test results discussed with the patient's . He stated that the patient has said yes and no on a few occasions. The patient appears to be comfortable. No new seizure activity. As above, I am recommending transfer to [place]. The patient's prefers [facility]. 03/24/18 09:58 Notified that [facility] will call us back when available. 03/24/18 10:58 Case discussed with [facility] at 10:35. Case then discussed with Dr. Lowe, Neurologist at [facility], at 10: 44. He agreed with the management thus far, but recommended that we give the patient an additional 500 mg Keppra, for a total of 1500 mg load. He would like the patient to be admitted to the Hospitalist, and he would like the patient to receive an EEG when she arrives to their facility. He is concerned that the CPK is above what we would expect for the seizure history provided. He is concerned that the patient may be experiencing subclinical seizures. Case then discussed with Dr. Ascencio, Hospitalist at [facility], at 10: 52. He accepted the patient for transfer to their facility. [facility] will notify us when a bed is available. 03/24/18 11:47 CT of the head images from 03/20/2018 push to [facility]. Departure - Departure Time of Disposition: 11:00 Disposition: DC/Tfer to Acute Hospital 02 Condition: Fair Clinical Impression: Seizures, , Type 1 diabetes, Rhabdomyolysis - Discharge Information *PRESCRIPTION DRUG MONITORING PROGRAM REVIEWED*: Not Applicable *COPY OF PRESCRIPTION DRUG MONITORING REPORT IN PATIENT WHIT: Not Applicable Referrals: Sabrina Quan MD [Physician] -
[2018-03-24] MEDS ORDERED: levETIRAcetam 1,000 MG in Sodium Chloride 0.9% 100 ML IV STA (09:09)
[2018-03-24] MEDS ORDERED: Magnesium Sulfate/Water 2 GM in Premix Bag 1 BAG IV STA (09:13)
[2018-03-24] MEDS ORDERED: Phosphorus #1 250 MG Tab PO ONE (09:17)
[2018-03-24] MEDS ORDERED: Sodium Chloride 0.9% 1,000 ML IV ONE (09:53)
[2018-03-24] MEDS ORDERED: levETIRAcetam 500 MG in Sodium Chloride 0.9% 100 ML IV STA (10:58)
[2018-03-24] MEDS ORDERED: Sodium Chloride 0.9% 1,000 ML ONE (11:40)
== END 2018-03-24 11:55 ==
LOC: JD.ED 07:24
DX: O99.89 Other specified diseases and conditions complicating pregnancy, childbirth and the puerperium (principal); R56.9 Unspecified convulsions; O24.011 Pre-existing type 1 diabetes mellitus, in pregnancy, first trimester; M62.82 Rhabdomyolysis; Z3A.13 13 weeks gestation of pregnancy; Z88.8 Allergy status to other drugs, medicaments and biological substances; Z79.899 Other long term (current) drug therapy
CPT/HCPCS: 36415; 80053; 80306; 81001; 82550; 82962; 83735; 84100; 85007; 85027; 96361; 96365; 96375; 96376; 99285; A9270; J1953; J7030; J7040; J3475

== ENCOUNTER 2021-03-03 18:08 | Emergency (ER) | payer BC ==
[2021-03-03] MEDS ORDERED: Sodium Chloride 0.9% 10 ML Syringe FLUSH PRN (20:06)
[2021-03-03 20:43] VITALS: BP 127/77; PULSE 110
--- NOTE | 2021-03-03 22:06 | EDM.PDOC ---
ED HPI GENERAL MEDICAL PROBLEM - General Chief Complaint: GEOLOGICAL SPECIALIST Problem Stated Complaint: 11 WKS PG BLEEDING Time Seen by Provider: 03/03/21 19:45 Source of Information: Reports: Patient History Limitations: Reports: No Limitations - History of Present Illness INITIAL COMMENTS - FREE TEXT/NARRATIVE: 30-year-old female presents the emergency department today with vaginal bleeding noted. Patient states she is 11 weeks and last menstrual period was 2020-12-13. Patient's due date is 2021-09-19. She is a 3 para 2. Patient's GEOLOGICAL SPECIALIST is Dr. Mariano. Patient states that approximately 530 this evening she noted vaginal bleeding. She has a panty liner on at this time and has not changed it since she started bleeding. She states she has had a few small clots noted when she goes to the bathroom. She states that the time that she noted the vaginal bleeding she has had slight pelvic cramping rated at a 1 out of 10. She states she does have a history of type 1 diabetes and is otherwise healthy. Pelvic Pain Score (Numeric/FACES): 1 - Related Data Allergies Allergy/AdvReac Type Severity Reaction Status Date / Time adhesive Allergy Cannot Verified 03/03/21 20:54 Remember bupropion Allergy Cannot Verified 03/03/21 20:54 Remember Uckbfec-ZUU-CaA Reductase Allergy Cannot Verified 03/03/21 20:54 Inhibitor Remember [Qugefwk-Iqh-Upx Reductase Inhibitor] Dermabond Preneo Allergy Blisters Uncoded 03/03/21 20:54 Home Meds: Home Meds Cetirizine [ZyrTEC] 10 mg PO DAILY 12/04/16 [History] Pnv No.103/Folic/Om3s/Fish Oil [ Gummies] 1 each PO DAILY 12/04/16 [History] Acetaminophen [Tylenol] 650 mg PO Q6H PRN tablet 12/09/16 [Rx] Lactobacillus Combo No.10 [Probiotic] 1 cap PO DAILY 03/03/21 [History] Levothyroxine [Synthroid] 100 mcg PO DAILY 03/03/21 [History] Magnesium Chloride [Slow-Mag] 71.5 mg PO DAILY 03/03/21 [History] busPIRone [Buspar] 15 mg PO BID 03/03/21 [History] Past Medical History HEENT History: Reports: Impaired Vision GEOLOGICAL SPECIALIST History: Reports: Psychiatric History: Reports: PTSD Endocrine/Metabolic History: Reports: Diabetes, Type I, Hypothyroidism Other Endocrine/Metabolic History: HAshimotos Do You Give Correction Boluses or Sliding Scale: No - Past Surgical History HEENT Surgical History: Reports: Naso-Sinus Surgery, Oral Surgery, Tonsillectomy GI Surgical History: Reports: Appendectomy, Cholecystectomy Social & Family History - Family History Family Medical History: No Pertinent Family History Endocrine/Metabolic: Reports: Diabetes, type II - Tobacco Use Tobacco Use Status *Q: Never Tobacco User Second Hand Smoke Exposure: No - Caffeine Use Caffeine Use: Reports: Coffee - Recreational Drug Use Recreational Drug Use: No - Living Situation & Occupation Living situation: Reports: , with Spouse, with Family Occupation: Unemployed ED ROS GENERAL - Review of Systems Review Of Systems: Comprehensive ROS is negative, except as noted in HPI. ED EXAM - Physical Exam Exam: See Below Exam Limited By: No Limitations General Appearance: Alert, WD/WN, No Apparent Distress Ears: Normal External Exam, Hearing Grossly Normal Nose: Normal Inspection Throat/Mouth: Normal Inspection Head: Atraumatic, Normocephalic Neck: Normal Inspection Respiratory/Chest: No Respiratory Distress, No Accessory Muscle Use Cardiovascular: Normal Peripheral Pulses, Regular Rate, Rhythm GI/Abdominal Exam: No Distention Rectal Exam: Deferred Back Exam: Normal Inspection Extremities: Normal Inspection Neurological: Alert, Oriented, Normal Cognition Psychiatric: Normal Affect, Normal Mood Skin Exam: Warm, Dry, Intact, Normal Color, No Rash Lymphatic: No Adenopathy Course - Vital Signs Text/Narrative:: As stated above, patient presents with new onset vaginal bleeding at 11 weeks . Physical exam is essentially unremarkable. Patient is hemodynamically stable at the time of my exam. Will obtain lab studies to include ABO/Rh type, CBC, hCG quantitative and will also get a transvaginal ultrasound. Last Recorded V/S: Last Vital Signs Temp 98.7 F 03/03/21 20:00 Pulse 110 H 03/03/21 20:00 Resp 14 03/03/21 20:00 BP 127/77 03/03/21 20:00 Pulse Ox 100 03/03/21 20:00 - Orders/Labs/Meds Orders: Active Orders 24 hr Category Date Time Status OB 1st Tri Sgl 1st Gest [US] Stat Exams 03/03/21 20:07 Taken Sodium Chloride 0.9% [Saline Flush] Med 03/03/21 20:06 Active 10 ml FLUSH ASDIRECTED PRN Saline Lock Insert [OM.PC] Stat Oth 03/03/21 20:06 Ordered Medication Orders Sodium Chloride (Sodium Chloride 0.9% 10 Ml Syringe) 10 ml FLUSH ASDIRECTED PRN PRN Reason: Keep Vein Open Labs: Laboratory Tests 03/03/21 03/03/21 03/03/21 Range/Units 21:15 21:15 21:15 WBC 10.92 H (3.98-10.04) K/mm3 RBC 4.48 (3.98-5.22) M/mm3 Hgb 12.4 (11.2-15.7) gm/dl Hct 37.6 (34.1-44.9) % MCV 83.9 D (79.4-94.8) fl MCH 27.7 (25.6-32.2) pg MCHC 33.0 (32.2-35.5) g/dl RDW Std Deviation 41.6 (36.4-46.3) fL Plt Count 327 (182-369) K/mm3 MPV 9.5 (9.4-12.3) fl Neut % (Auto) 75.3 H (34.0-71.1) % Lymph % (Auto) 16.8 L (19.3-51.7) % [place] % (Auto) 6.4 (4.7-12.5) % Eos % (Auto) 1.1 (0.7-5.8) Baso % (Auto) 0.1 (0.1-1.2) % Neut # (Auto) 8.22 H (1.56-6.13) K/mm3 Lymph # (Auto) 1.84 (1.18-3.74) K/mm3 [place] # (Auto) 0.70 H (0.24-0.36) K/mm3 Eos # (Auto) 0.12 (0.04-0.36) K/mm3 Baso # (Auto) 0.01 (0.01-0.08) K/mm3 HCG, Quant 53632.0 mIU/mL Blood Type A POSITIVE Meds: Medications Generic Name Dose Route Start Last Admin Trade Name Freq PRN Reason Stop Dose Admin Sodium Chloride 10 ml 03/03/21 20:06 Sodium Chloride 0.9% 10 Ml Syringe FLUSH ASDIRECTED PRN Keep Vein Open - Re-Assessments/Exams Free Text/Narrative Re-Assessment/Exam: 03/03/21 22:04 V ashley radiologist impression transabdominal ultrasound: Gestation: Single living intrauterine gestation. Yolk sac is unremarkable Embryonic/ heart rate: 172 bpm Extra embryonic membrane/placenta: Unremarkable. No subchorionic hemorrhage. Amniotic fluid: Amniotic and coelomic fluid are normal for gestational age. Gestational age: 11 weeks 4 days based on CRL 4.7 cm Impression: Single living intrauterine fetus with estimated gestational age 11 weeks 4 days based on crown-rump length, concordant with stated dating 03/03/21 22:31 Hematology reveals a WBC of 7.92, hemoglobin 12.4, hematocrit 37.6, platelet count 327, quantitative hCG level 51,959. Patient will be discharged home with recommendations that she follow-up with her GEOLOGICAL SPECIALIST doctor early this week. She has been given strong return precautions. Departure - Departure Time of Disposition: 22:32 Disposition: Home, Self-Care 01 Condition: Good Clinical Impression: Vaginal bleeding during - Discharge Information Referrals: Stefania Mariano MD [Primary Care Provider] - Forms: ED Department Discharge Additional Instructions: You were seen in the emergency department this evening with new onset vaginal bleeding at 11 weeks . Lab studies and ultrasound were completed. As discussed, ultrasound is unremarkable. hCG level was 51,000 on today's visit. Go home, get plenty rest and drink plenty of fluids. Abstain from any sexual intercourse at this time. You will need to follow-up with your GEOLOGICAL SPECIALIST doctor early this week for reevaluation. Return to the emergency department should the vaginal bleeding worsen such as using 1 maxi pad every 15 minutes x 3. Sepsis Event Note (ED) - Evaluation Sepsis Screening Result: No Definite Risk - Focused Exam Vital Signs: Vital Signs Temp Pulse Resp BP Pulse Ox 03/03/21 20:00 98.7 F 110 H 14 127/77 100 - My Orders Last 24 Hours: My Active Orders 03/03/21 20:06 Sodium Chloride 0.9% [Saline Flush] 10 ml FLUSH ASDIRECTED PRN Saline Lock Insert [OM.PC] Stat 03/03/21 20:07 OB 1st Tri Sgl 1st Gest [US] Stat - Assessment/Plan Last 24 Hours: My Active Orders 03/03/21 20:06 Sodium Chloride 0.9% [Saline Flush] 10 ml FLUSH ASDIRECTED PRN Saline Lock Insert [OM.PC] Stat 03/03/21 20:07 OB 1st Tri Sgl 1st Gest [US] Stat
--- NOTE | 2021-03-04 07:19 | US ---
First trimester obstetrical ultrasound: Multiple real-time images were obtained transabdominally. Comparison: No prior obstetrical imaging is available. Dates: LMP: LMP given as 12/13/20, HAKAN 09/19/21, gestational age 11 weeks 3 days Current ultrasound: HAKAN 09/18/21, gestational age 11 weeks 4 days Single intrauterine gestation is seen. Small embryo is seen. No subchorionic hemorrhage is seen. Maternal ovaries are not visualized. Measurements: [place]-rump length: 4.73 cm - 11 weeks 4 days Heart rate: 172 bpm Impression: 1. Single intrauterine gestation. Dates as noted above. 2. Nonvisualized ovaries. 3. Nothing acute is appreciated on current first trimester obstetrical ultrasound. Diagnostic code #1 I agree with preliminary report from [facility], finalized on 03/03/21, 10:26 PM VENEER LATHE OPERATOR, code 1
== END 2021-03-03 22:50 | disposition home or self-care (01) ==
LOC: JD.ED 18:08
DX: O20.9 Hemorrhage in early pregnancy, unspecified (principal); O24.011 Pre-existing type 1 diabetes mellitus, in pregnancy, first trimester; E10.8 Type 1 diabetes mellitus with unspecified complications; O99.281 Endocrine, nutritional and metabolic diseases complicating pregnancy, first trimester; E03.9 Hypothyroidism, unspecified; Z91.048 Other nonmedicinal substance allergy status; Z88.8 Allergy status to other drugs, medicaments and biological substances; Z79.899 Other long term (current) drug therapy; Z3A.11 11 weeks gestation of pregnancy
CPT/HCPCS: 36415; 76801; 76801-26; 84702; 85025; 86900; 86901; 99284-25

== ENCOUNTER 2021-03-19 05:30 | Emergency (ER) | payer BC ==
[2021-03-19 05:46] VITALS: BP 140/71; PULSE 120
--- NOTE | 2021-03-19 07:00 | EDM.PDOC ---
<Leonard Marie - Last Filed: 03/19/21 06:57> ED HPI GENERAL MEDICAL PROBLEM - General Chief Complaint: STUNNER AND SHACKLER Problem Stated Complaint: COUGH/SOB Time Seen by Provider: 03/19/21 06:00 Source of Information: Reports: Patient History Limitations: Reports: No Limitations - History of Present Illness INITIAL COMMENTS - FREE TEXT/NARRATIVE: Patient is a 30-year-old female who is approximately 14 weeks presenting with a chief complaint of cough, shortness of breath, body aches. She states she has been feeling this way since yesterday. She reports exposure to sick family members during the . She reports symptoms are mild. Today, she did started experiencing some abdominal cramping. She noticed some vaginal spotting. She does not feel lightheaded or dizzy. She does not take any medication for symptoms. Nothing seems to make symptoms better or worse. She has had appropriate care. She had normal ultrasound done approximately 2 weeks ago. She is vaccinated against Covid but has not had a booster shot. Her vaccination was performed in May. She is also vaccinated against the flu. - Related Data Allergies Allergy/AdvReac Type Severity Reaction Status Date / Time adhesive Allergy Cannot Verified 03/03/21 20:54 Remember bupropion Allergy Cannot Verified 03/03/21 20:54 Remember Wudogkh-VAQ-SaL Reductase Allergy Cannot Verified 03/03/21 20:54 Inhibitor Remember [Czyrymd-Zsw-Apv Reductase Inhibitor] Dermabond Preneo Allergy Blisters Uncoded 03/03/21 20:54 Home Meds: Home Meds Cetirizine [ZyrTEC] 10 mg PO DAILY 12/04/16 [History] Pnv No.103/Folic/Om3s/Fish Oil [ Gummies] 1 each PO DAILY 12/04/16 [History] Acetaminophen [Tylenol] 650 mg PO Q6H PRN tablet 12/09/16 [Rx] Lactobacillus Combo No.10 [Probiotic] 1 cap PO DAILY 03/03/21 [History] Levothyroxine [Synthroid] 100 mcg PO DAILY 03/03/21 [History] Magnesium Chloride [Slow-Mag] 71.5 mg PO DAILY 03/03/21 [History] busPIRone [Buspar] 15 mg PO BID 03/03/21 [History] Oseltamivir [Tamiflu] 75 mg PO BID #20 cap 03/19/21 [Rx] Past Medical History HEENT History: Reports: Impaired Vision STUNNER AND SHACKLER History: Reports: Other STUNNER AND SHACKLER History: Pt currently 14 weeks Neurological History: Reports: Seizure Other Neuro History: No seizurs since 2019. Psychiatric History: Reports: Anxiety, PTSD Endocrine/Metabolic History: Reports: Diabetes, Type I, Hypothyroidism Other Endocrine/Metabolic History: Hashimotos Type of Insulin Used in Pump: Onmipod Who Manages Your Pump: Patient (Self) - Infectious Disease History Infectious Disease History: Reports: Chicken Pox - Past Surgical History HEENT Surgical History: Reports: Naso-Sinus Surgery, Oral Surgery, Tonsillectomy GI Surgical History: Reports: Appendectomy, Cholecystectomy Social & Family History - Family History Family Medical History: No Pertinent Family History Endocrine/Metabolic: Reports: Diabetes, type II - Tobacco Use Tobacco Use Status *Q: Never Tobacco User - Caffeine Use Caffeine Use: Reports: Coffee - Recreational Drug Use Recreational Drug Use: No - Living Situation & Occupation Living situation: Reports: , with Spouse, with Family Occupation: Unemployed ED ROS ENT - Review of Systems Review Of Systems: See Below Free Text/Narrative/Comment: In addition to that documented in the HPI above, the additional ROS was obtained: Constitutional: Denies fevers or chills Eyes: Denies vision changes ENMT: Denies sore throat CV: Denies chest pain Resp: Per HPI GI: Denies vomiting or diarrhea : Denies painful urination MSK: Denies recent trauma Skin: Denies new rashes Neuro: Denies new numbness or tingling or weakness Endocrine: Denies unexpected weight loss Heme: Denies bleeding disorders ED EXAM, ENT - Physical Exam Exam: See Below Text/Narrative:: I have reviewed the triage vital signs Const: Well nourished, well developed, appears stated age Eyes: Pupils Equal and reactive to light bilaterally, no conjunctival injection HENT: No signs of trauma or swelling, Neck supple without meningismus CV: Regular Rate Rhythm, Warm, well-perfused extremities RESP: Unlabored respiratory effort MSK: No gross deformities appreciated Skin: Warm, dry. No rashes Neuro: Alert, cement cutter II-XII grossly intact. Sensation and motor function of extremities grossly intact. Psych: Appropriate mood and affect. Departure - Departure Disposition: Home, Self-Care 01 Clinical Impression: Intrauterine , Vaginal bleeding before 22 weeks gestation, - Discharge Information Prescriptions: Oseltamivir [Tamiflu] 75 mg PO BID #20 cap Instructions: and Influenza Referrals: Stefania Mariano MD [Primary Care Provider] - Forms: ED Department Discharge Additional Instructions: Increase fluids and Tylenol as needed. Return to emergency department if sym ptoms are worse. Follow-up with your OB provider over the next week. Tamiflu as prescribed. Sepsis Event Note (ED) - Evaluation Sepsis Screening Result: Possible Sepsis Risk <Lorri Baeza - Last Filed: 03/19/21 09:43> Course - Vital Signs Text/Narrative:: Patient's ultrasound shows a 13-week 5-day intrauterine with no source for vaginal bleeding. I am discharging patient at this time with instructions to follow-up with her OB provider and increase fluids. Patient has a positive type. She is to return to emergency department if symptoms were to worsen. Last Recorded V/S: Last Vital Signs Temp 99.3 F 03/19/21 05:40 Pulse 120 H 03/19/21 05:40 Resp 21 H 03/19/21 05:40 BP 140/71 03/19/21 05:40 Pulse Ox 97 03/19/21 05:40 - Orders/Labs/Meds Orders: Active Orders 24 hr Category Date Time Status UA W/MICROSCOPIC [URIN] Stat Lab 03/19/21 06:07 Ordered Labs: Laboratory Tests 03/19/21 03/19/21 03/19/21 Range/Units 05:55 06:21 06:21 WBC 8.12 (3.98-10.04) K/mm3 RBC 4.36 (3.98-5.22) M/mm3 Hgb 12.2 (11.2-15.7) gm/dl Hct 36.9 (34.1-44.9) % MCV 84.6 (79.4-94.8) fl MCH 28.0 (25.6-32.2) pg MCHC 33.1 (32.2-35.5) g/dl RDW Std Deviation 43.3 (36.4-46.3) fL Plt Count 261 (182-369) K/mm3 MPV 9.1 L (9.4-12.3) fl Neut % (Auto) 88.8 H (34.0-71.1) % Lymph % (Auto) 3.9 L (19.3-51.7) % [place] % (Auto) 6.5 (4.7-12.5) % Eos % (Auto) 0.6 L (0.7-5.8) Baso % (Auto) 0.0 L (0.1-1.2) % Neut # (Auto) 7.20 H (1.56-6.13) K/mm3 Lymph # (Auto) 0.32 L (1.18-3.74) K/mm3 [place] # (Auto) 0.53 H (0.24-0.36) K/mm3 Eos # (Auto) 0.05 (0.04-0.36) K/mm3 Baso # (Auto) 0.00 L (0.01-0.08) K/mm3 PT 9.9 (9.7-12.0) SECONDS INR < 0.93 Sodium (136-145) mEq/L Potassium (3.5-5.1) mEq/L Chloride (98-107) mEq/L Carbon Dioxide (21-32) mEq/L Anion Gap (5-15) BUN (7-18) mg/dL Creatinine (0.55-1.02) mg/dL Est Cr Clr Drug Dosing mL/min Estimated GFR (MDRD) (>60) mL/min BUN/Creatinine Ratio (14-18) Glucose (70-99) mg/dL Calcium (8.5-10.1) mg/dL Total Bilirubin (0.2-1.0) mg/dL AST (15-37) U/L ALT (14-59) U/L Alkaline Phosphatase (46-116) U/L C-Reactive Protein (<1.0) mg/dL Total Protein (6.4-8.2) g/dl Albumin (3.4-5.0) g/dl Globulin gm/dL Albumin/Globulin Ratio (1-2) Influenza Type A RNA Positive H (NEGATIVE) Influenza Type B RNA Negative (NEGATIVE) SARS-CoV-2 RNA (GINA) Negative (NEGATIVE) Blood Type Gel Antibody Screen 03/19/21 03/19/21 03/19/21 Range/Units 06:21 06:21 06:21 WBC (3.98-10.04) K/mm3 RBC (3.98-5.22) M/mm3 Hgb (11.2-15.7) gm/dl Hct (34.1-44.9) % MCV (79.4-94.8) fl MCH (25.6-32.2) pg MCHC (32.2-35.5) g/dl RDW Std Deviation (36.4-46.3) fL Plt Count (182-369) K/mm3 MPV (9.4-12.3) fl Neut % (Auto) (34.0-71.1) % Lymph % (Auto) (19.3-51.7) % [place] % (Auto) (4.7-12.5) % Eos % (Auto) (0.7-5.8) Baso % (Auto) (0.1-1.2) % Neut # (Auto) (1.56-6.13) K/mm3 Lymph # (Auto) (1.18-3.74) K/mm3 [place] # (Auto) (0.24-0.36) K/mm3 Eos # (Auto) (0.04-0.36) K/mm3 Baso # (Auto) (0.01-0.08) K/mm3 PT (9.7-12.0) SECONDS INR Sodium 136 (136-145) mEq/L Potassium 3.6 (3.5-5.1) mEq/L Chloride 100 (98-107) mEq/L Carbon Dioxide 24 (21-32) mEq/L Anion Gap 15.6 H (5-15) BUN 4 L (7-18) mg/dL Creatinine 0.8 (0.55-1.02) mg/dL Est Cr Clr Drug Dosing 106.48 mL/min Estimated GFR (MDRD) > 60 (>60) mL/min BUN/Creatinine Ratio 5.0 L (14-18) Glucose 108 H (70-99) mg/dL Calcium 8.2 L (8.5-10.1) mg/dL Total Bilirubin 0.2 (0.2-1.0) mg/dL AST 30 (15-37) U/L ALT 31 (14-59) U/L Alkaline Phosphatase 72 (46-116) U/L C-Reactive Protein 2.9 H* (<1.0) mg/dL Total Protein 7.2 (6.4-8.2) g/dl Albumin 2.8 L (3.4-5.0) g/dl Globulin 4.4 gm/dL Albumin/Globulin Ratio 0.6 L (1-2) Influenza Type A RNA (NEGATIVE) Influenza Type B RNA (NEGATIVE) SARS-CoV-2 RNA (GINA) (NEGATIVE) Blood Type A POSITIVE Gel Antibody Screen Negative Meds: Medications Discontinued Medications Generic Name Dose Route Start Last Admin Trade Name Freq PRN Reason Stop Dose Admin Lactated Ringer's 1,000 mls @ 1,000 mls/hr 03/19/21 07:42 03/19/21 08:00 Ringers, Lactated IV 03/19/21 08:41 1,000 mls/hr .BOLUS ONE Administration Departure - Departure Time of Disposition: 09:23 Sepsis Event Note (ED) - Focused Exam Vital Signs: Vital Signs Temp Pulse Resp BP Pulse Ox 03/19/21 05:40 99.3 F 120 H 21 H 140/71 97
[2021-03-19 07:39] LABS: CORONAVIRUS COVID-19 NAA NEGATIVE (NEGATIVE)
[2021-03-19] MEDS ORDERED: Lactated Ringers 1,000 ML IV ONE (07:42)
--- NOTE | 2021-03-19 09:16 | US ---
Obstetrical ultrasound: Multiple real-time images were obtained transabdominally. Comparison: Previous obstetrical imaging of 03/03/21. Dates: Working HAKAN: 09/19/21, gestational age 13 weeks 5 days Current ultrasound: HAKAN 09/18/21, gestational age 13 weeks 6 days Single intrauterine gestation is seen. Amniotic fluid volume is normal. Neither maternal ovaries are visualized. No subchorionic hemorrhage is seen. Measurements: Engelhard-rump length: 7.85 cm - 13 weeks 6 days Heart rate: 193 bpm Impression: 1. Single intrauterine gestation. Dates as noted above. 2. Nonvisualized maternal ovaries. 3. No definite abnormality is seen as an etiology for the patient's vaginal bleeding. Diagnostic code #1
== END 2021-03-19 09:55 | disposition home or self-care (01) ==
LOC: JD.ED 05:30
DX: O20.9 Hemorrhage in early pregnancy, unspecified (principal); R05.9 Cough, unspecified; R06.02 Shortness of breath; O24.011 Pre-existing type 1 diabetes mellitus, in pregnancy, first trimester; E10.9 Type 1 diabetes mellitus without complications; O99.281 Endocrine, nutritional and metabolic diseases complicating pregnancy, first trimester; E03.9 Hypothyroidism, unspecified; Z20.822 Contact with and (suspected) exposure to COVID-19; Z88.8 Allergy status to other drugs, medicaments and biological substances; Z91.048 Other nonmedicinal substance allergy status; Z79.899 Other long term (current) drug therapy; Z3A.13 13 weeks gestation of pregnancy
CPT/HCPCS: 0240U; 36415; 76801; 80053; 85025; 85610; 86140; 86850; 86900; 86901; 99285; J7120

== ENCOUNTER 2021-03-20 19:00 | Emergency (ER) | payer BC ==
[2021-03-20 19:17] VITALS: BP 142/82; PULSE 108
--- NOTE | 2021-03-20 19:45 | EDM.PDOC ---
ED HPI GENERAL MEDICAL PROBLEM - General Chief Complaint: Respiratory Problem Stated Complaint: LOW O2/INFLUENZA Time Seen by Provider: 03/20/21 19:13 Source of Information: Reports: Patient History Limitations: Reports: No Limitations - History of Present Illness INITIAL COMMENTS - FREE TEXT/NARRATIVE: The patient presents with influenza A, cough, fever, and chills. Her oxygen saturations were in the upper 80s at times. Usually with exertion. She is 14 weeks gestation. She has no history of asthma or COPD and she does not smoke. She was diagnosed with influenza A yesterday and was put on tamiflu. Onset: Gradual Duration: Day(s): (3) Severity: Moderate Improves with: Reports: None Worsens with: Reports: None Associated Symptoms: Reports: Cough, Shortness of Breath. Denies: Chest Pain, Headaches, Loss of Appetite, Nausea/Vomiting - Related Data Allergies Allergy/AdvReac Type Severity Reaction Status Date / Time adhesive Allergy Cannot Verified 03/20/21 19:18 Remember bupropion Allergy Cannot Verified 03/20/21 19:18 Remember Hywrifb-LSV-IlR Reductase Allergy Cannot Verified 03/20/21 19:18 Inhibitor Remember [Rynfbnn-Tsj-Wag Reductase Inhibitor] Dermabond Preneo Allergy Blisters Uncoded 03/20/21 19:18 Home Meds: Home Meds Cetirizine [ZyrTEC] 10 mg PO DAILY 12/04/16 [History] Pnv No.103/Folic/Om3s/Fish Oil [ Gummies] 1 each PO DAILY 12/04/16 [History] Acetaminophen [Tylenol] 650 mg PO Q6H PRN tablet 12/09/16 [Rx] Lactobacillus Combo No.10 [Probiotic] 1 cap PO DAILY 03/03/21 [History] Levothyroxine [Synthroid] 100 mcg PO DAILY 03/03/21 [History] Magnesium Chloride [Slow-Mag] 71.5 mg PO DAILY 03/03/21 [History] busPIRone [Buspar] 15 mg PO BID 03/03/21 [History] Oseltamivir [Tamiflu] 75 mg PO BID #20 cap 03/19/21 [Rx] Albuterol [Proventil HFA] 2 puff INH Q4H PRN #1 inhaler 03/20/21 [Rx] Benzonatate [Tessalon Perles] 100 mg PO TID PRN #30 cap 03/20/21 [Rx] Insulin Pump Cartridge [Omnipod] 03/20/21 [History] Past Medical History HEENT History: Reports: Impaired Vision Gastrointestinal History: Reports: None GANG BOSS History: Reports: Other GANG BOSS History: Pt currently 14 weeks Neurological History: Reports: Seizure Other Neuro History: No seizures since 2019. 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 Psychiatric History: Reports: Anxiety, PTSD Endocrine/Metabolic History: Reports: Diabetes, Type I, Hypomagnesemia, Hypothyroidism, Obesity/BMI 30+ Other Endocrine/Metabolic History: Hashimotos Who Manages Your Pump: Patient (Self) Basal Rate (Units/hr): 1.7 Do You Give Correction Boluses or Sliding Scale: Yes - Infectious Disease History Infectious Disease History: Reports: Chicken Pox - Past Surgical History HEENT Surgical History: Reports: Naso-Sinus Surgery, Oral Surgery, Tonsillectomy GI Surgical History: Reports: Appendectomy, Cholecystectomy Social & Family History - Family History Family Medical History: No Pertinent Family History Endocrine/Metabolic: Reports: Diabetes, type II - Tobacco Use Tobacco Use Status *Q: Never Tobacco User - Caffeine Use Caffeine Use: Reports: Coffee - Recreational Drug Use Recreational Drug Use: No - Living Situation & Occupation Living situation: Reports: , with Spouse, with Family Occupation: Unemployed ED ROS GENERAL - Review of Systems Review Of Systems: See Below Constitutional: Reports: No Symptoms HEENT: Reports: No Symptoms Respiratory: Reports: Shortness of Breath, Wheezing Cardiovascular: Reports: No Symptoms Endocrine: Reports: No Symptoms GI/Abdominal: Reports: No Symptoms : Reports: No Symptoms Musculoskeletal: Reports: No Symptoms Skin: Reports: No Symptoms Neurological: Reports: No Symptoms ED EXAM, GENERAL - Physical Exam Exam: See Below Exam Limited By: No Limitations General Appearance: Alert, No Apparent Distress Ears: Normal External Exam Nose: Normal Inspection Head: Atraumatic, Normocephalic Neck: Normal Inspection Respiratory/Chest: No Respiratory Distress, Wheezing (slight wheeze in the lower lungs). No: Rhonchi Cardiovascular: Regular Rate, Rhythm, No Edema, No Murmur GI/Abdominal: Soft, Non-Tender, No Organomegaly Back Exam: Normal Inspection Extremities: Normal Inspection Neurological: Alert, Oriented Course - Vital Signs Last Recorded V/S: Last Vital Signs Temp 98.9 F 03/20/21 19:13 Pulse 108 H 03/20/21 19:13 Resp 16 03/20/21 19:13 BP 142/82 H 03/20/21 19:13 Pulse Ox 96 03/20/21 19:13 - Re-Assessments/Exams Free Text/Narrative Re-Assessment/Exam: 03/20/21 19:46 I feel she needs to be on an inhaler and some tessalon pearls. Departure - Departure Time of Disposition: 19:50 Disposition: Home, Self-Care 01 Condition: Good Clinical Impression: Influenza - Discharge Information *PRESCRIPTION DRUG MONITORING PROGRAM REVIEWED*: Not Applicable *COPY OF PRESCRIPTION DRUG MONITORING REPORT IN PATIENT WHIT: Not Applicable Prescriptions: Albuterol [Proventil HFA] 2 puff INH Q4H PRN #1 inhaler PRN Reason: Shortness Of Breath Benzonatate [Tessalon Perles] 100 mg PO TID PRN #30 cap PRN Reason: Cough Referrals: Stefania Mariano MD [Primary Care Provider] - 1 Week Additional Instructions: Continue with the tamiflu. Drink plenty of fluids. Take tylenol as needed for any fever or pain. Use the inhaler 2 puffs every 6 hours as needed for any shortness of breathing or wheezing. Take the tessalon perles every 8 hours as needed for cough. Please return if you are worse. Sepsis Event Note (ED) - Evaluation Sepsis Screening Result: No Definite Risk - Focused Exam Vital Signs: Vital Signs Temp Pulse Resp BP Pulse Ox 03/20/21 19:13 98.9 F 108 H 16 142/82 H 96
== END 2021-03-20 20:00 | disposition home or self-care (01) ==
LOC: JD.ED 19:00
DX: J11.1 Influenza due to unidentified influenza virus with other respiratory manifestations (principal); E10.9 Type 1 diabetes mellitus without complications; E03.9 Hypothyroidism, unspecified; Z91.048 Other nonmedicinal substance allergy status; Z88.8 Allergy status to other drugs, medicaments and biological substances; Z79.899 Other long term (current) drug therapy
CPT/HCPCS: 99283

== ENCOUNTER 2022-06-03 21:48 | Emergency (ER) | payer BC, OTHER ==
[2022-06-03 22:11] VITALS: BP 99/63; PULSE 78
[2022-06-03] MEDS ORDERED: Acetaminophen/oxyCODONE 325-5 MG Tab PO ONE (23:46)
== END 2022-06-04 00:22 | disposition home or self-care (01) ==
LOC: JD.ED 21:48
DX: S52.022A Displaced fracture of olecranon process without intraarticular extension of left ulna, initial encounter for closed fracture (principal); E10.9 Type 1 diabetes mellitus without complications; E03.9 Hypothyroidism, unspecified; E66.9 Obesity, unspecified; Z68.36 Body mass index [BMI] 36.0-36.9, adult; Z91.048 Other nonmedicinal substance allergy status; Z88.8 Allergy status to other drugs, medicaments and biological substances; Z79.899 Other long term (current) drug therapy; W00.0XXA Fall on same level due to ice and snow, initial encounter
CPT/HCPCS: 29105; 73080; 99283; A9270; 29125